=== PATIENT | female | born 1970 | race African-American/Black ===

== ENCOUNTER 2016-03-16 21:59 | Inpatient (IN) | payer OTHER, MEDICAID, MEDICARE ==
[~2016-03-16] VITALS: Ht 167.6 cm; Wt 110.0 kg
[2016-03-16 22:07] VITALS: BP 129/71; PULSE 81; RESP 18; TEMP 98.8; O2SAT 99
[2016-03-16] MEDS ORDERED: SODIUM CHLOR 0.9% 1000 ML INJ 1,000 ML IV SCH (22:22)
[2016-03-16 22:23] VITALS: BP 129/63; PULSE 81; RESP 18; O2SAT 97
[2016-03-16] MEDS ORDERED: SODIUM CHLORIDE 0.9% FLUSH 5 ML FLUSH IVF PRN (22:30)
--- NOTE | 2016-03-16 22:48 | PD ---
HPI Chief Complaint: Numbness/Tingling Time Seen by Provider: 22:09 Travel History International Travel<30 days: No Contact w/Intl Traveler<30days: No Traveled to known affect area: No History of Present Illness HPI Patient is a 45 year old female with hx of sarcoid, DM and "numbness" presents to ER with c/o of abdominal numbness and pain. Patient reports that for the past week and half, she has had increased numbness from the bottom of her abdomen to under her breast. Reports overall decreased oral intake with increased lower abdominal pain. Patient reports that although she feels numb to her lower abdomen, she has had increased pain to her lower abdomen. Pt reports dysuria with urinary urgency/freq. No fever/chills. Patient reports that she has also been having chest pain. Patient reports sharp stabbing pain across her whole chest which radiates down both her arms which has been ongoing for the past week and a half. Patient denies any history of coronary artery disease or any history of cardiac stents in the past. Patient does admit to having history of numbness to her lower extremities for the past 5 years. Patient reports that she has had extensive workup at another hospital, reports that "no one can tell me why I felt numb to my lower extremities." PFSH Past Medical History Cardiovascular Problems: Yes (htn ) Diabetes: Yes Patient Takes Glucophage: No Hypertension: Yes Medical other: Yes (carpal tunnel, scardidosis ) Tetanus Vaccination: Unknown Influenza Vaccination: Yes ?: Not LMP: 03/10/2015 : 3 Para: 3 Past Surgical History Section: Yes Cholecystectomy: Yes Other Surgery: Yes (lumbar fusion) Social History Alcohol Use: No Tobacco Use: No Substance Use: No Allergies-Medications (Allergen,Severity, Reaction): Coded Allergies: No Known Allergies (Unverified , 03/16/16) Reported Meds & Prescriptions Reported Meds & Active Scripts Active Reported Atorvastatin (Atorvastatin Calcium) 20 Mg Tab 20 Mg PO HS Tizanidine (Tizanidine HCl) 4 Mg Cap 4 Mg PO TID Lantus Inj (Insulin Glargine) 1,000 Unit/10 Ml Vial 55 Units SQ BID Oxycodone (Oxycodone HCl) 5 Mg Cap 5 Mg PO Q4H PRN Linzess (Linaclotide) 145 Mcg Cap 145 Mcg PO DAILY Lamivudine 150 Mg Tab 150 Mg PO BID Ferrous Sulfate 325 Mg Tab 325 Mg PO DAILY Ketoconazole Topical 2% Cream 1 Applic TOPICAL DAILY Baclofen 10 Mg Tab 10 Mg PO TID Humalog Inj (Insulin Human Lispro) 1,000 Unit/10 Ml Vial 33 Units SQ DAILY Citroma Liq (Magnesium Citrate) 300 Ml Liq 300 Ml PO DIRECTED Dulcolax Supp (Bisacodyl) 10 Mg Supp 10 Mg RECTAL DAILY PRN Milk of Magnesia Liq (Magnesium Hydroxide) 400 Mg/5 Ml Susp 30 Ml PO Q6H PRN Gabapentin 300 Mg Cap 300 Mg PO DAILY Lyrica (Pregabalin) 200 Mg Cap 200 Mg PO TID Polyethylene Glycol 3350 Powder (Polyethylene Glycol) 17 Gm Pow 17 Gm PO DAILY Review of Systems General / Constitutional: No: Fever Eyes: No: Visual changes HENT: No: Headaches Cardiovascular: Positive: Chest Pain or Discomfort, No: Palpitations, Irregular Rhythm Respiratory: No: Shortness of Breath Gastrointestinal: Positive: Nausea, Vomiting, Abdominal Pain Genitourinary: Positive: Urgency, Frequency, Dysuria Musculoskeletal: No: Pain Skin: No Rash Neurologic: No: Weakness Psychiatric: No: Depression Endocrine: No: Polydipsia Hematologic/Lymphatic: No: Easy Bruising Physical Exam Narrative GENERAL: nad, nontoxic SKIN: Warm and dry. HEAD: Atraumatic. Normocephalic. EYES: Pupils equal and round. No scleral icterus. No injection or drainage. ENT: No nasal bleeding or discharge. Mucous membranes pink and moist. NECK: Trachea midline. No JVD. CARDIOVASCULAR: Regular rate and rhythm. No murmur appreciated. RESPIRATORY: No accessory muscle use. Clear to auscultation. Breath sounds equal bilaterally. GASTROINTESTINAL: Abdomen soft,lower abdominal tenderness, nondistended. Hepatic and splenic margins not palpable. MUSCULOSKELETAL: No obvious deformities. No clubbing. No cyanosis. +3 edema. NEUROLOGICAL: Awake and alert. No obvious cranial nerve deficits. Motor grossly within normal limits. Normal speech. PSYCHIATRIC: Appropriate mood and affect; insight and judgment normal. Data Data Last Documented VS Vital Signs Date Time Temp Pulse Resp B/P Pulse Ox O2 Delivery O2 Flow Rate FiO2 03/16/16 23:11 98 Room Air 03/16/16 22:23 81 18 129/63 03/16/16 22:07 98.8 Orders Complete Blood Count With Diff (03/16/16 22:22) Comprehensive Metabolic Panel (03/16/16 22:22) Lipase (03/16/16 22:22) Prothrombin Time / Inr (Pt) (03/16/16 22:22) Act Partial Throm Time (Ptt) (03/16/16 22:22) Urinalysis - C+S If Indicated (03/16/16 22:22) Iv Access Insert/Monitor (03/16/16 22:22) Ecg Monitoring (03/16/16 22:22) Oximetry (03/16/16 22:22) NPO (03/16/16 22:22) Sodium Chlor 0.9% 1000 Ml Inj (Ns 1000 M (03/16/16 22:22) Sodium Chloride 0.9% Flush (Ns Flush) (03/16/16 22:30) Electrocardiogram (03/16/16 22:22) Chest, Single Ap (03/16/16 22:22) Ed Urine Pregnancytest Poc (03/16/16 22:22) Ckmb (Isoenzyme) Profile (03/16/16 22:22) Troponin I (03/16/16 22:22) Cath For Specimen (03/16/16 22:22) Ct Abd/Pel W Iv Contrast(Rout) (03/16/16 22:22) Place In Observation (03/16/16 ) Vital Signs (Adult) Q4H (03/16/16 22:51) Activity Bed Rest (03/16/16 22:51) ^ Instrument Panel Assembler / Telemetry .CONTINUOUS (03/16/16 22:51) Diet 1800 Ada Cons Carb (03/17/16 Breakfast) Sodium Chloride 0.9% Flush (Ns Flush) (03/16/16 23:00) Sodium Chloride 0.9% Flush (Ns Flush) (03/17/16 09:00) Acetaminophen (Tylenol) (03/16/16 23:00) Ondansetron Inj (Zofran Inj) (03/16/16 23:00) Bisacodyl Supp (Dulcolax Supp) (03/16/16 23:00) Sennosides (Senokot) (03/16/16 23:00) Troponin I (03/16/16 22:51) Troponin I (03/17/16 04:51) Electrocardiogram (03/16/16 23:00) Electrocardiogram (03/17/16 05:00) Resp Oxygen Junior C Titrat 1-4 L (03/16/16 ) Heparin Inj (Heparin Inj) (03/16/16 23:00) Naloxone Inj (Narcan Inj) (03/16/16 23:00) Bedside Glucose JERROD.AC&HS (03/16/16 22:51) ^ Blood Glucose Goal (Criteria (03/16/16 22:51) ^ Hypoglycemia 51 - 69 Mg/Dl (03/16/16 22:51) ^ Hypoglycemia 50 Mg/Dl Or < (03/16/16 22:51) ^ Notify Dr: Other (03/16/16 22:51) Dextrose 50% In Jordyn (Vial) Inj (D50w (Vi (03/16/16 23:00) Glucagon Inj (Glucagon Inj) (03/16/16 23:00) Insulin Aspart Supplemtl Scale (Novolog (03/17/16 07:00) Insulin Detemir Inj (Levemir Inj) (03/17/16 09:00) Aspirin (Aspirin) (03/18/16 09:00) Nitroglycerin 2% Oint (Nitroglycerin 2% (03/16/16 23:00) Nitroglycerin Sl (Nitrostat Sl) (03/16/16 23:00) Urine Culture (03/16/16 22:40) Admit Order (Ed Use Only) (03/16/16 23:20) CKMB (03/16/16 22:40) CKMB% (03/16/16 22:40) Labs Laboratory Tests Test 03/16/16 22:40 Prothrombin Time 10.7 SEC Prothromb Time International 1.0 RATIO Ratio Activated Partial 21.0 SEC Thromboplast Time Sodium Level 137 MEQ/L Potassium Level 4.4 MEQ/L Chloride Level 102 MEQ/L Carbon Dioxide Level 27.2 MEQ/L Anion Gap 8 MEQ/L Blood Urea Nitrogen 12 MG/DL Creatinine 0.61 MG/DL Estimat Glomerular Filtration 128 ML/MIN Rate Random Glucose 132 MG/DL Calcium Level 9.1 MG/DL Total Bilirubin 0.3 MG/DL Aspartate Amino Transf 68 U/L (AST/SGOT) Alanine Aminotransferase 43 U/L (ALT/SGPT) Alkaline Phosphatase 71 U/L Total Creatine Kinase 128 U/L Creatine Kinase MB 0.7 NG/ML Troponin I LESS THAN 0.02 NG/ML Total Protein 8.5 GM/DL Albumin 3.4 GM/DL Lipase 161 U/L White Blood Count 17.3 TH/MM3 Red Blood Count 3.93 MIL/MM3 Hemoglobin 12.2 GM/DL Hematocrit 36.2 % Mean Corpuscular Volume 92.0 FL Mean Corpuscular Hemoglobin 31.1 PG Mean Corpuscular Hemoglobin 33.8 % Concent Red Cell Distribution Width 18.8 % Platelet Count 364 TH/MM3 Mean Platelet Volume 9.3 FL Neutrophils (%) (Auto) 71.5 % Lymphocytes (%) (Auto) 21.0 % Monocytes (%) (Auto) 5.7 % Eosinophils (%) (Auto) 1.1 % Basophils (%) (Auto) 0.7 % Neutrophils # (Auto) 12.4 TH/MM3 Lymphocytes # (Auto) 3.6 TH/MM3 Monocytes # (Auto) 1.0 TH/MM3 Eosinophils # (Auto) 0.2 TH/MM3 Basophils # (Auto) 0.1 TH/MM3 CBC Comment AUTO DIFF Differential Comment AUTO DIFF CONFIRMED Platelet Estimate NORMAL Platelet Morphology Comment ENLARGED Stomatocytes 1+ Keratocytes OCC Urine Color YELLOW Urine Turbidity HAZY Urine pH 5.5 Urine Specific [place] 1.016 Urine Protein NEG mg/dL Urine Glucose (UA) NEG mg/dL Urine Ketones NEG mg/dL Urine Occult Blood NEG Urine Nitrite POS Urine Bilirubin NEG Urine Urobilinogen LESS THAN 2.0 MG/DL Urine Leukocyte Esterase MOD Urine RBC 1 /hpf Urine WBC 16 /hpf Urine Squamous Epithelial <1 /hpf Cells Urine Bacteria MOD /hpf Urine Hyaline Casts 1 /lpf Urine Mucus FEW /lpf Microscopic Urinalysis Comment CATH-CULTURE IND MDM Medical Decision Making Medical Screen Exam Complete: Yes Emergency Medical Condition: Yes Interpretation(s) EKG at 2225: NSR at 76bpm, qt/qtc: 395/425, no acute st or t wave changes Laboratory Tests Test 03/16/16 22:40 Urine Color YELLOW (YELLW/STRAW) Urine Turbidity HAZY (CLEAR) Urine pH 5.5 (5.0-8.5) Urine Specific [place] 1.016 (1.002-1.035) Urine Protein NEG mg/dL (NEG-TRACE) Urine Glucose (UA) NEG mg/dL (NEG) Urine Ketones NEG mg/dL (NEG) Urine Occult Blood NEG (NEG) Urine Nitrite POS (NEG) Urine Bilirubin NEG (NEG) Urine Urobilinogen LESS THAN 2.0 MG/DL (LESS THAN 2.0) Urine Leukocyte Esterase MOD (NEG) Urine RBC 1 /hpf (0-3) Urine WBC 16 /hpf (0-5) Urine Squamous Epithelial <1 /hpf (0-5) Cells Urine Bacteria MOD /hpf (NONE) Urine Hyaline Casts 1 /lpf (RARE) Urine Mucus FEW /lpf (OCC) Microscopic Urinalysis Comment CATH-CULTURE IND Sodium Level 137 MEQ/L (136-145) Potassium Level 4.4 MEQ/L (3.5-5.1) Chloride Level 102 MEQ/L (98-107) Carbon Dioxide Level 27.2 MEQ/L (21.0-32.0) Anion Gap 8 MEQ/L (5-15) Blood Urea Nitrogen 12 MG/DL (7-18) Creatinine 0.61 MG/DL (0.50-1.00) Estimat Glomerular Filtration 128 ML/MIN Rate (>89) Random Glucose 132 MG/DL (74-106) Calcium Level 9.1 MG/DL (8.5-10.1) Aspartate Amino Transf 68 U/L (15-37) (AST/SGOT) Albumin 3.4 GM/DL (3.4-5.0) Lipase 161 U/L (73-393) Vital Signs Date Time Temp Pulse Resp B/P Pulse Ox O2 Delivery O2 Flow Rate FiO2 03/16/16 23:11 98 Room Air 03/16/16 23:00 97 03/16/16 22:23 81 18 129/63 97 Room Air 03/16/16 22:07 98.8 81 18 129/71 99 Differential Diagnosis ACS, arrhythmia, electrolyte abnormality, UTI, gastritis, gastroenteritis, colitis Narrative Course 45-year-old female who presents to emergency room with multiple complaints. 1: Chest pain: Patient has been having chest pain for the past week and a half. Patient reports that chest pain is located to her upper chest wall and radiates down her arms bilaterally. EKG normal sinus rhythm at 76 beats per minutes, no ST-T wave changes. Cardiac enzymes ordered for further evaluation symptoms as well as x-ray chest. 1: Abdominal pain: Patient with lower abdominal pain for the past week and half. Patient also with dysuria, urgency or frequency. CBC, BMP, UA ordered for further evaluation symptoms. CT of her lower abdomen also ordered for further evaluation symptoms. Plan to observation to medicine service for her chest pain. Reviewed case with Nayan Walker who accepts pt to service on behalf of Dr. Rodriguez; Diagnosis Primary Impression: Chest pain Qualified Code: R07.9 - Chest pain, unspecified type Additional Impressions: Abdominal pain Qualified Code: R10.30 - Lower abdominal pain UTI (urinary tract infection) Qualified Code: N30.00 - Acute cystitis without hematuria Admitting Information Admitting Physician Requests: Observation Brenda Marino DO Mar 16, 2016 22:48
--- NOTE | 2016-03-16 22:50 | RADRPT ---
EXAM DATE/TIME: 03/16/2016 22:43 [facility] COMPARISON: No previous studies available for comparison. INDICATIONS : Patient complains of chest and upper abdominal pain. MEDICAL HISTORY : None. SURGICAL HISTORY : None. ENCOUNTER: Initial ACUITY: 2 weeks PAIN SCORE: 10/10 LOCATION: chest FINDINGS: A single view of the chest demonstrates the lungs to be symmetrically aerated without evidence of mas s, infiltrate or effusion. The cardiomediastinal contours are unremarkable. Osseous structures are intact. CONCLUSION: No acute disease. Héctor Mari MD on March 16, 2016 at 22:48 Board Certified Radiologist. This report was verified electronically.
[2016-03-16 23:00] VITALS: O2SAT 97
[2016-03-16] MEDS ORDERED: NITROGLYCERIN 2% OINT 1 GM PACKET TOP SCH (23:00)
[2016-03-16] MEDS ORDERED: ONDANSETRON HCL 4 MG/2 ML VIAL IVP PRN (23:00)
[2016-03-16] MEDS ORDERED: NALOXONE HCL 0.4 MG/ML AMP IV PRN (23:00)
[2016-03-16] MEDS ORDERED: SODIUM CHLORIDE 0.9% FLUSH 5 ML FLUSH FLUSH PRN (23:00)
[2016-03-16] MEDS ORDERED: DEXTROSE 50% IN WATER 50 ML VIAL(D50) IV PUSH PRN (23:00)
[2016-03-16] MEDS ORDERED: NITROGLYCERIN 0.4 MG SL 25 TABS/BTL SL PRN (23:00)
[2016-03-16] MEDS ORDERED: GLUCAGON 1 MG/ML VIAL OTHER PRN (23:00)
[2016-03-16] MEDS ORDERED: ACETAMINOPHEN 325 MG TAB PO PRN (23:00)
[2016-03-16] MEDS ORDERED: SENNOSIDES 8.6 MG TAB PO PRN (23:00)
[2016-03-16 23:11] VITALS: O2SAT 98
[2016-03-16 23:17] LABS: BACTERIA, URINE MOD /hpf; BLOOD, URINE NEG (NEG); GLUCOSE,URINE NEG (NEG); HYALINE CAST, URINE 1 /lpf (RARE); KETONE, URINE NEG (NEG); MUCUS URINE FEW /lpf (OCC); PH, URINE 5.5 (5.0-8.5); SQUAMOUS EPITHELIAL CELL URINE <1 /hpf (0-5); URINE COLOR YELLOW (YELLW/STRAW)
[2016-03-16 23:19] LABS: AUTOMATED NEUTROPHIL # 12.4 TH/MM3 (1.8-7.7); BASOPHIL # 0.1 TH/MM3 (0-0.2); BASOPHIL % 0.7 % (0.0-2.0); COMMENT (UR) CATH-CULTURE IND; CULTURE IF INDICATED CATH CULTURE IND; EOSINOPHIL # 0.2 TH/MM3 (0-0.4); EOSINOPHIL % 1.1 % (0.0-4.0); HEMATOCRIT 36.2 % (35.0-46.0); LYMPHOCYTE # 3.6 TH/MM3 (1.0-4.8); MEAN CORPUSCULAR HEMOGLOBIN 31.1 PG (27.0-34.0); MEAN CORPUSCULAR HGB CONC 33.8 % (32.0-36.0); MONO % 5.7 % (0.0-8.0); NEUT % 71.5 % (16.0-70.0); NITRITE,URINE POS (NEG); PLATELET COUNT 364 TH/MM3 (150-450); RED BLOOD COUNT 3.93 MIL/MM3 (4.00-5.30); RED CELL DISTRIBUTION WIDTH 18.8 % (11.6-17.2); WHITE BLOOD COUNT 17.3 TH/MM3 (4.0-11.0)
[2016-03-16 23:25] LABS: ANION GAP 8 MEQ/L (5-15); AST (GOT) 68 U/L (15-37); BICARBONATE 27.2 MEQ/L (21.0-32.0); BLOOD UREA NITROGEN 12 MG/DL (7-18); CHLORIDE 102 MEQ/L (98-107); GLOMERULAR FILTRATION RATE 128 ML/MIN (>89); SODIUM (NA) 137 MEQ/L (136-145)
[2016-03-16 23:26] LABS: POTASSIUM 4.4 MEQ/L (3.5-5.1)
[2016-03-16 23:30] LABS: ALKALINE PHOSPHATASE 71 U/L (45-117); ALT (GPT) 43 U/L (10-53); CREATINE KINASE 128 U/L (26-192); TOTAL BILIRUBIN ADULT 0.3 MG/DL (0.2-1.0)
[2016-03-16] MEDS ORDERED: MORPHINE SULFATE 4 MG/ML INJ IV PRN (23:30)
[2016-03-16 23:31] LABS: PROTHROMBIN TIME - PATIENT 10.7 SEC (9.8-11.6)
[2016-03-16] MEDS: HEPARIN SODIUM - SQ 10,000 UNITS/ML VIAL SQ SCH (23:39)
[2016-03-16] MEDS: cefTRIAXone INJ 1,000 MG in SODIUM CHLORIDE 0.9% INJ 100 ML IV SCH (23:39)
[2016-03-16 23:42] LABS: CKMB 0.7 NG/ML (0.5-3.6)
[2016-03-16] MEDS ORDERED: ASPIRIN EC 81 MG TABEC PO ONE (23:45)
[2016-03-16] MEDS ORDERED: POLY17S PO (23:51)
[2016-03-16] MEDS ORDERED: GABA300C5 PO (23:52)
[2016-03-16] MEDS ORDERED: LYRI200C PO (23:52)
[2016-03-16] MEDS ORDERED: DULC10SU3 RECTAL (23:53)
[2016-03-16] MEDS ORDERED: MILKSUS PO (23:53)
[2016-03-16] MEDS ORDERED: CITRSOL4 PO (23:54)
[2016-03-16] MEDS ORDERED: BACL10TA PO (23:55)
[2016-03-16] MEDS ORDERED: HUMALOG SQ (23:55)
[2016-03-16] MEDS ORDERED: KETO2CRE TOPICAL (23:56)
[2016-03-16] MEDS ORDERED: FERR325T PO (23:56)
[2016-03-16] MEDS ORDERED: LINA145C PO (23:57)
[2016-03-16] MEDS ORDERED: LAMI1TAB7 PO (23:57)
[2016-03-16] MEDS ORDERED: OXYC1CAP PO (23:58)
[2016-03-16] MEDS ORDERED: LANTUS2P SQ (23:58)
[2016-03-16] MEDS ORDERED: IOHEXOL 350 MG/ML 10 ML VIAL (for RAD DIAG) IV ONE (23:58)
[2016-03-16] MEDS ORDERED: TIZA4CAP3 PO (23:59)
[2016-03-16] MEDS ORDERED: ATOR20TA15 PO (23:59)
[2016-03-17] VITALS (10 sets, daily range): BP systolic 113–141; BP diastolic 54–75; PULSE 67–86; RESP 18–22; TEMP 97.5–98.2; O2SAT 95–98
[2016-03-17] MEDS ORDERED: DIPH1TAB36
[2016-03-17] MEDS ORDERED: ESOM1CAP16 PO
[2016-03-17] MEDS ORDERED: ATEN50TA PO (00:01)
[2016-03-17] MEDS ORDERED: LISI40TA PO (00:01)
[2016-03-17] MEDS ORDERED: CHOL100028 PO (00:02)
[2016-03-17 00:04] LABS: HEMO FLAGS AUTO DIFF
[2016-03-17 00:06] LABS: KERATOCYTES OCC (NORMAL); PLATELET ESTIMATE SMEAR NORMAL (NORMAL); PLATELET MORPHOLOGY ENLARGED (NORMAL); SCAN/DIFF AUTO DIFF CONFIRMED; STOMATOCYTES 1+ (NORMAL)
--- NOTE | 2016-03-17 00:27 | RADRPT ---
EXAM DATE/TIME: 03/16/2016 23:54 [facility] COMPARISON: No previous studies available for comparison. INDICATIONS : Lower quadrant pain with numbness down into legs. Difficulty urinating. IV CONTRAST: 94 cc Omnipaque 350 (iohexol) IV ORAL CONTRAST: No oral contrast ingested. RADIATION DOSE: 30.90 CTDIvol (mGy) MEDICAL HISTORY : Diabetes mellitus type 2. Hypertension. SURGICAL HISTORY : Cholecystectomy. section.Lumbar fusion. ENCOUNTER: Initial ACUITY: 2 days PAIN SCALE: 5/10 LOCATION: Bilateral lower quadrant abdomen TECHNIQUE: Volumetric scanning of the abdomen and pelvis was performed. Using automated exposure control and ad justment of the mA and/or kV according to patient size, radiation dose was kept as low as reasonably achievable to obtain optimal diagnostic quality images. FINDINGS: There is some out of field artifact due to patient's body habitus. LOWER LUNGS: The visualized lower lungs are clear. There is mild thickening of the pleura in the lower left chest without evidence of pleural effusion. LIVER: Homogeneous density without lesion. There is no dilation of the biliary tree. Hemoclips in the port a from prior cholecystectomy. SPLEEN: Normal size without lesion. PANCREAS: Within normal limits. KIDNEYS: Normal in size and shape. There is no mass, stone or hydronephrosis. ADRENAL GLANDS: Within normal limits. VASCULAR: There is no aortic aneurysm. BOWEL/MESENTERY: The stomach, small bowel, and colon demonstrate no acute abnormality. There is no free intraperitone al air or fluid. ABDOMINAL WALL: Within normal limits. RETROPERITONEUM: There is no lymphadenopathy. BLADDER: No wall thickening or mass. REPRODUCTIVE: Anteverted uterus. Bilateral fallopian clips. 3.1 cm round hypodense structure in the superior adne xa probably representing cyst. No evidence of free fluid or INGUINAL: There is no lymphadenopathy or hernia. MUSCULOSKELETAL: Transpedicular screws at 3 levels lower lumbar. CONCLUSION: Probable right ovarian cyst. Mild pleural thickening lower left chest. Otherwise negative exam. Fam Alvarado MD on March 17, 2016 at 0:20 Board Certified Radiologist. This report was verified electronically.
[2016-03-17] MEDS: MORPHINE SULFATE 4 MG/ML INJ IV PRN ×2 (00:54→05:07)
[2016-03-17] MEDS: PREGABALIN 100 MG CAP PO SCH ×3 (05:06→22:05)
[2016-03-17] MEDS: BACLOFEN 20 MG TAB PO SCH ×3 (05:06→22:05)
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
[2016-03-17] MEDS: INSULIN ASPART SUPPLEMENTAL SCALE SQ SCH ×4 (05:57→22:05)
--- NOTE | 2016-03-17 09:12 | HHI.PR ---
Subjective Remarks Patient seen with a female RN Sherine at bedside Complaining of right shoulder pain Still some discomfort in the abdomen mostly lower abdomen still feeling numbness below diaphragm Sometimes she feels that she has to be sometimes she has no idea whether she is being or not. She has no bowel movement from past few days as per patient. Review of system for 12 point system otherwise unremarkable Objective Objective Results - Vital Signs Date Time Temp Pulse Resp B/P Pulse Ox O2 Delivery O2 Flow Rate FiO2 03/17/16 08:36 96 21 03/17/16 07:25 98.0 70 18 120/63 96 03/17/16 05:20 14 03/17/16 04:46 98.2 78 21 131/74 98 03/17/16 01:00 76 03/16/16 23:11 98 Room Air 03/16/16 23:00 97 03/16/16 22:23 81 18 129/63 97 Room Air 03/16/16 22:07 98.8 81 18 129/71 99 I/O 03/16/16 03/16/16 03/16/16 03/17/16 03/17/16 03/17/16 07:00 15:00 23:00 07:00 15:00 23:00 Output Total 800 ml Balance -800 ml Output Urine Total 800 ml # Voids 1 Result Diagram: 03/16/16223903/16/162239 Other Results Laboratory Tests Test 03/16/16 03/17/16 22:40 05:39 Prothrombin Time 10.7 Prothromb Time International 1.0 Ratio Activated Partial 21.0 Thromboplast Time Sodium Level 137 Potassium Level 4.4 Chloride Level 102 Carbon Dioxide Level 27.2 Anion Gap 8 Blood Urea Nitrogen 12 Creatinine 0.61 Estimat Glomerular Filtration 128 Rate Random Glucose 132 Calcium Level 9.1 Total Bilirubin 0.3 Aspartate Amino Transf 68 (AST/SGOT) Alanine Aminotransferase 43 (ALT/SGPT) Alkaline Phosphatase 71 Total Creatine Kinase 128 Creatine Kinase MB 0.7 Troponin I LESS THAN 0.02 LESS THAN 0.02 Total Protein 8.5 Albumin 3.4 Lipase 161 White Blood Count 17.3 Red Blood Count 3.93 Hemoglobin 12.2 Hematocrit 36.2 Mean Corpuscular Volume 92.0 Mean Corpuscular Hemoglobin 31.1 Mean Corpuscular Hemoglobin 33.8 Concent Red Cell Distribution Width 18.8 Platelet Count 364 Mean Platelet Volume 9.3 Neutrophils (%) (Auto) 71.5 Lymphocytes (%) (Auto) 21.0 Monocytes (%) (Auto) 5.7 Eosinophils (%) (Auto) 1.1 Basophils (%) (Auto) 0.7 Neutrophils # (Auto) 12.4 Lymphocytes # (Auto) 3.6 Monocytes # (Auto) 1.0 Eosinophils # (Auto) 0.2 Basophils # (Auto) 0.1 CBC Comment AUTO DIFF Differential Comment AUTO DIFF CONFIRMED Platelet Estimate NORMAL Platelet Morphology Comment ENLARGED Stomatocytes 1+ Keratocytes OCC Urine Color YELLOW Urine Turbidity HAZY Urine pH 5.5 Urine Specific [place] 1.016 Urine Protein NEG Urine Glucose (UA) NEG Urine Ketones NEG Urine Occult Blood NEG Urine Nitrite POS Urine Bilirubin NEG Urine Urobilinogen LESS THAN 2.0 Urine Leukocyte Esterase MOD Urine RBC 1 Urine WBC 16 Urine Squamous Epithelial <1 Cells Urine Bacteria MOD Urine Hyaline Casts 1 Urine Mucus FEW Microscopic Urinalysis Comment CATH-CULTURE IND Date/Time Procedure Status Source Growth 03/16/16 22:40 Urine Culture Worksheet Urine Catheterized Urine Pending Physical Exam Physical Exam PHYSICAL EXAMINATION GENERAL: This is a well-developed, well-nourished female who appears to be in no acute distress. She is alert and awake, []. VITAL SIGNS: Reviewed GENERAL: This is a 45 year-old female, attended to by her two children. The patient is sitting up in bed. She is conversing pleasantly and in no acute distress at this time. HEENT: Mucous membranes are moist. There is no jaundice. NECK: Supple. CARDIOVASCULAR: Regular rate and rhythm. RESPIRATORY: Lungs are clear to auscultation bilaterally. GASTROINTESTINAL: Bowel sounds are present. She is overweight. There is tenderness over the suprapubic area, otherwise no guarding or rebound. GENITOURINARY: No CVA tenderness. MUSCULOSKELETAL: No pitting edema. Homans' sign is negative. Distal pulses are palpable. NEUROLOGIC: The patient is awake, alert, oriented x4. She is clear and fluent. She is moving upper extremities freely. Lower extremities: Minimal strength. She can plantar flex about 3/5, dorsiflex is minimal. She cannot straight leg raise. She has minimal movement in either of her legs actively. Sensation is grossly intact to light touch, although per patient it is diminished. She is not completely numb anywhere on her lower extremities or abdomen with light touching. Subjectively diminished sensation. Gait and station is not tested. Positive DTR at knee joint. She cannot raise her hand above shoulder level. As per patient she did not walk from last 3 years A/P Assessment and Plan 1. Atypical chest pain. 2. Diabetes mellitus type 2. 3. 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 4. Chronic bilateral lower extremity weakness. 5. Urinary retention (straight cath removed 450 cc in the emergency room). 6. History of lumbar spinal fusion, status post recent fall. 7. Urinary tract infection. 8. Hypertension. 9. Hyperlipidemia. PLAN: 1. Rule out acute cardiac event as she is at least moderate risk for developing cardiovascular disease with her hypertension, hyperlipidemia, diabetes, being sedentary, etc. She will be placed in DVT prophylaxis. Aspirin will be ordered. Repeat EKGs will be ordered. Serial troponins will be ordered. Troponin [address] of the abdomen and pelvis report reviewed 3. Her urinary tract infection will be treated with Rocephin while we await culture and sensitivity. 4. resumed her home medications. Appropriate and is indicated 5. Continue monitor her blood sugar, cover with insulin. 6. Plan for x-ray shoulder right which is hurting her. 7. We may be able to request records from the previous hospital where she was to get a better understanding of all the tests that were run and the diagnoses that were made. 8. Neurology consult Discussed with patient in detail Discussed with Gilberto Moser MD Mar 17, 2016 09:12
[2016-03-17] MEDS ORDERED: BISACODYL 10 MG SUPP RECTAL ONE (10:00)
[2016-03-17] MEDS ORDERED: MAGNESIUM HYDROXIDE SUSP 30 ML CUP PO PRN (10:00)
--- NOTE | 2016-03-17 10:57 | RADRPT ---
EXAM DATE/TIME: 03/17/2016 10:35 [facility] COMPARISON: No previous studies available for comparison. INDICATIONS : Right shoulder pain, injured using walker MEDICAL HISTORY : None. SURGICAL HISTORY : None. ENCOUNTER: Initial ACUITY: 3 months PAIN SCORE: 8/10 LOCATION: Right shoulder FINDINGS: There are degenerative changes at the acromioclavicular joint. Mild soft-tissue swelling is evident. Minimal subacromial spurring is noted. Alignment is anatomic. A fracture is not appreciated. CONCLUSION: Degenerative changes, negative for fracture. Vu Jones MD FACR on March 17, 2016 at 10:55 Board Certified Radiologist. This report was verified electronically.
--- NOTE | 2016-03-17 11:31 | RADRPT ---
EXAM DATE/TIME: 03/17/2016 11:14 [facility] COMPARISON: No previous studies available for comparison. INDICATIONS : Left shoulder pain, injured using walker MEDICAL HISTORY : None. SURGICAL HISTORY : None. ENCOUNTER: Initial ACUITY: 3 months PAIN SCORE: 10/10 LOCATION: Left shoulder FINDINGS: Degenerative changes are present about the left shoulder. Subacromial spurring is present. Alignmen t is anatomic. CONCLUSION: Degenerative changes as described above. Vu Jones MD FACR on March 17, 2016 at 11:26 Board Certified Radiologist. This report was verified electronically.
[2016-03-17] MEDS: SODIUM CHLORIDE 0.9% FLUSH 5 ML FLUSH FLUSH SCH ×2 (11:49→22:03)
[2016-03-17] MEDS: GABAPENTIN 300 MG CAP PO SCH ×2 (11:49→21:00)
[2016-03-17] MEDS: ATORVASTATIN 20 MG TAB PO SCH (11:49)
[2016-03-17 11:50] LABS: BHCG SCREEN QUALITATIVE LESS THAN 1 MIU/ML (0-5)
[2016-03-17] MEDS: LISINOPRIL 20 MG TAB PO SCH (11:53)
[2016-03-17] MEDS: PANTOPRAZOLE SOD 40 MG DELAYED RELEASE TAB PO SCH (11:55)
[2016-03-17] MEDS: HEPARIN SODIUM - SQ 10,000 UNITS/ML VIAL SQ SCH ×2 (11:55→23:25)
[2016-03-17] MEDS: ZIDOVUDINE 100 MG CAP PO SCH ×2 (12:22→22:04)
[2016-03-17] MEDS: ATENOLOL 50 MG TAB PO SCH ×2 (12:22→22:04)
[2016-03-17] MEDS: INSULIN DETEMIR 100 UNITS/ML VIAL SQ SCH ×2 (12:23→21:00)
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
--- NOTE | 2016-03-17 14:46 | EKG ---
Date Performed: 03/17/2016 Time Performed: 05:18:26 PTAGE: 45 years EKG: Sinus rhythm Nonspecific ST and T wave abnormalities PREVIOUS TRACING : 03/16/2016 22.25 Since previous tracing, no significant change noted DOCTOR: Jay Bunch Interpretating Date/Time 03/17/2016 14:45:56
--- NOTE | 2016-03-17 15:35 | EKG ---
Date Performed: 03/16/2016 Time Performed: 22:25:38 PTAGE: 45 years EKG: Sinus rhythm Nonspecific ST and T wave abnormalities NO PREVIOUS TRACING DOCTOR: Jay Bunch Interpretating Date/Time 03/17/2016 15:35:18
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
[2016-03-17] MEDS ORDERED: IOHEXOL 350 MG/ML 10 ML VIAL (for RAD DIAG) IV ONE (17:56)
--- NOTE | 2016-03-17 18:00 | RADRPT ---
EXAM DATE/TIME: 03/17/2016 16:20 [facility] COMPARISON: No previous studies available for comparison. INDICATIONS : Upper back pain. RADIATION DOSE: 35.68 CTDIvol (mGy) MEDICAL HISTORY : Cardiovascular disease. Hypertension. Diabetes mellitus type 2. SURGICAL HISTORY : None. ENCOUNTER: Initial ACUITY: 1 day PAIN SCALE: 5/10 LOCATION: Upper back TECHNIQUE: Volumetric scanning of the thoracic spine was performed. Multiplanar reconstructions in the sagittal , coronal and oblique axial planes were performed. Using automated exposure control and adjustment o f the mA and/or kV according to patient size, radiation dose was kept as low as reasonably achievable to obtain optimal diagnostic quality images. FINDINGS: There is mild to moderate spinal stenosis at T5-T6 predominantly related to midline posterior osteoph ytic spurring from the posterior elements at this level. No other significant spinal stenosis is not ed. Mild degenerative changes are noted throughout the thoracic spine. There is no acute fracture o r subluxation. CONCLUSION: 1. Mild to moderate spinal stenosis at T5-T6 predominantly related to midline posterior osteophytic spurring from the posterior elements at this level. 2. Degenerative changes throughout the thoracic spine. 3. No acute fracture or prevertebral soft-tissue swelling. Lazaro Vasquez MD on March 17, 2016 at 17:37 Board Certified Radiologist. This report was verified electronically.
--- NOTE | 2016-03-17 18:46 | RADRPT ---
EXAM DATE/TIME: 03/17/2016 16:20 [facility] COMPARISON: No previous studies available for comparison. INDICATIONS : Brain tumor; evaluate for metastatic disease. RADIATION DOSE: 35.68 CTDIvol (mGy) ; Combined studies - Thoracic Spine/Lumbar Spine MEDICAL HISTORY : Hypertension. Cardiovascular disease Diabetes mellitus type 2. SURGICAL HISTORY : None. ENCOUNTER: Initial ACUITY: 1 day PAIN SCALE: 5/10 LOCATION: Lower back TECHNIQUE: Volumetric scanning of the lumbar spine was performed. Multiplanar reconstructions in the sagittal, coronal and oblique axial planes were performed. Using automated exposure control and adjustment of the mA and/or kV according to patient size, radiation dose was kept as low as reasonably achievable t o obtain optimal diagnostic quality images. FINDINGS: The patient is status post lower lumbar spine fusion from L4 through S1. Implants are noted at L4-L5 and L5-S1 disc spaces. There is no acute fracture or spondylolisthesis. Evaluation of the soft tis sues of the spine is limited without contrast enhancement. There is mild to moderate circumferential spinal stenosis at L3-L4 secondary to diffuse disc bulge, facet joint hypertrophy and ligamentous la xity. Degenerative changes are noted throughout the lumbar spine and lower thoracic spine. CONCLUSION: 1. Mild to moderate spinal stenosis at L3-L4 secondary to a diffuse disc bulge, facet joint hypertro phy and ligamentous laxity. 2. Evaluation of the soft tissues of the spine is somewhat limited without contrast enhancement. 3. Degenerative changes throughout the lumbar spine and lower thoracic spine. Lazaro Vasquez MD on March 17, 2016 at 18:29 Board Certified Radiologist. This report was verified electronically.
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
[2016-03-17] MEDS: cefTRIAXone INJ 1,000 MG in SODIUM CHLORIDE 0.9% INJ 100 ML IV SCH (23:26)
[2016-03-18] VITALS (10 sets, daily range): BP systolic 110–168; BP diastolic 57–75; PULSE 70–87; RESP 16–20; TEMP 96.6–98.2; O2SAT 96–98
[2016-03-18] MEDS: GABAPENTIN 300 MG CAP PO SCH ×3 (02:34→21:52)
[2016-03-18 05:33] LABS: HEMATOCRIT 33.1 % (35.0-46.0); MEAN CELL VOLUME 92.5 FL (80.0-100.0); MEAN CORPUSCULAR HGB CONC 33.5 % (32.0-36.0); PLATELET COUNT 277 TH/MM3 (150-450); RED BLOOD COUNT 3.57 MIL/MM3 (4.00-5.30); RED CELL DISTRIBUTION WIDTH 19.4 % (11.6-17.2); REVIEW FLAG FINAL; WHITE BLOOD COUNT 10.5 TH/MM3 (4.0-11.0)
[2016-03-18 06:03] LABS: BICARBONATE 25.4 MEQ/L (21.0-32.0); POTASSIUM 3.7 MEQ/L (3.5-5.1)
[2016-03-18] MEDS: PREGABALIN 100 MG CAP PO SCH ×3 (06:16→21:53)
[2016-03-18] MEDS: INSULIN ASPART SUPPLEMENTAL SCALE SQ SCH ×4 (06:16→20:45)
[2016-03-18] MEDS: BACLOFEN 20 MG TAB PO SCH ×3 (06:16→21:53)
[2016-03-18] MEDS: ATENOLOL 50 MG TAB PO SCH ×2 (07:45→21:53)
[2016-03-18] MEDS: LISINOPRIL 20 MG TAB PO SCH (07:45)
[2016-03-18] MEDS: ASPIRIN 325 MG TAB PO SCH (07:45)
[2016-03-18] MEDS: PANTOPRAZOLE SOD 40 MG DELAYED RELEASE TAB PO SCH (07:46)
[2016-03-18] MEDS: ATORVASTATIN 20 MG TAB PO SCH (07:46)
[2016-03-18] MEDS: SODIUM CHLORIDE 0.9% FLUSH 5 ML FLUSH FLUSH SCH ×2 (07:46→21:52)
[2016-03-18] MEDS: BISACODYL 10 MG SUPP PR PRN (07:47)
[2016-03-18] MEDS: INSULIN DETEMIR 100 UNITS/ML VIAL SQ SCH ×2 (07:48→20:44)
--- NOTE | 2016-03-18 07:56 | HHI.PR ---
Subjective Remarks no chest pain constipation with abd. discomfort Appetite fair LLQ and RLQ pain anxious, mild no headache Objective Objective Results - Vital Signs Date Time Temp Pulse Resp B/P Pulse Ox O2 Delivery O2 Flow Rate FiO2 03/18/16 07:46 18 03/18/16 04:13 96.6 87 20 127/60 96 03/18/16 04:00 72 03/18/16 00:00 73 03/17/16 23:46 97.5 76 20 119/54 97 03/17/16 20:00 67 03/17/16 19:58 97 03/17/16 19:46 98.2 74 20 113/58 97 03/17/16 18:14 20 03/17/16 16:03 98.2 76 22 121/75 97 03/17/16 12:31 98.0 86 18 141/70 95 03/17/16 08:36 96 21 I/O 03/17/16 03/17/16 03/17/16 03/18/16 03/18/16 03/18/16 07:00 15:00 23:00 07:00 15:00 23:00 Output Total 800 ml Balance -800 ml Output Urine Total 800 ml # Voids 1 Result Diagram: 03/18/16 0510 03/18/16 0510 Physical Exam Physical Exam GENERAL: This is a well-developed, well-nourished female who appears to be in no acute distress. She is alert and awake,. VITAL SIGNS: Reviewed GENERAL: This is a 45 year-old female, No family at bedside The patient is lying on rt. side in bed. She is conversing appropriately. HEENT: Mucous membranes are moist. There is no jaundice. NECK: Supple. CARDIOVASCULAR: Regular rate and rhythm. RESPIRATORY: Lungs are clear to auscultation bilaterally. GASTROINTESTINAL: Bowel sounds are present. She is overweight. There is tenderness over the suprapubic area, otherwise no guarding or rebound. GENITOURINARY: No CVA tenderness. MUSCULOSKELETAL: No pitting edema. Distal pulses 1+/4+ bilaterally NEUROLOGIC: The patient is awake, alert, oriented x4. She is clear and fluent. She is moving upper extremities freely. Lower extremities: Minimal strength. She can plantar flex about 3/5, dorsiflex is minimal. She has minimal movement in either of her legs actively. Sensation is grossly intact to light touch, although per patient it is diminished. She is not completely numb anywhere on her lower extremities or abdomen with light touching. Subjectively diminished sensation. She cannot raise her rt. hand above shoulder level. As per patient she did not walk from last 3 years Objective Remarks 12 point review obtained /otherwise unremarkable A/P Assessment and Plan 1.Atypical chest pain, 2. Diabetes mellitus type 2.,uncontrolled mild 3. Neuropathy from the diaphragm distally 4. Chronic bilateral lower extremity weakness continues 5. Urinary retention with dysuria. 6. History of lumbar spinal fusion, status post recent fall/ weakness. 7. Urinary tract infection. 8. Hypertension. 9. Hyperlipidemia. 10. Anxiety PLAN: 1. acute cardiac event ruled out. DVT prophylaxis. Aspirin ordered. Repeat EKGs with acute chest pain. Serial troponins negative. 2. CT of the abdomen and pelvis negative except for rt. ovarian cyst. 3. urinary tract infection will be treated with Rocephin while we await culture and sensitivity. Prelim shows Gm negative micah. Now voiding small amounts with dysuria. Slow improvement. 4. resumed her home medications. 5. Continue monitor her blood sugar, cover with insulin., glucose 159 this am 6. x-ray shoulder right done with no fracture seen. Degenerative changes noted, 7. We may be able to request records from the previous hospital where she was to get a better understanding of all the tests that were run and the diagnoses that were made. Reviewed per neurology 8. Neurology consult. Cerival xrays show spondlosis with fractures, thorasic and lumbar areas show degenerative disease with changes in T5 and T6, and moderate spinal stenosis in L3/L4. No fractures seen. CT head negative. Appreciate expert opinion. R/O myelitis 9. Worried about bowel movements even though she had BM yesterday with suppository. Requested fleets enema today and recieved. Requests home meds be reviewed. States she takes Predisone, but not seen on list. Will follow up with Dr. Rodriguez for needs. Discussed with patient Discussed with RN D/W Dr. Rodriguez This pt. was seen by myself and Dr. Rodriguez. This note is written on his behalf Discharge Planning home with her children vs SNF Discussed With: Other (patient, Dr. Rodriguez) Serina Ascencio Mar 18, 2016 07:56
[2016-03-18] MEDS: ZIDOVUDINE 100 MG CAP PO SCH ×2 (10:56→21:53)
[2016-03-18] MEDS: HEPARIN SODIUM - SQ 10,000 UNITS/ML VIAL SQ SCH ×2 (10:57→23:24)
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
[2016-03-18 15:07] LABS: ANA SCREEN POS (NEG)
--- NOTE | 2016-03-18 16:39 | HHI.PR ---
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 start steroids. Diagnosis/Plan: Subjective Subjective Comments No acute events reported She feels weaker in legs with numbness Active Medications Current Medications Medications (Trade) Dose Ordered Sig/Fredo Route Start Time Stop Time Status Last Admin (NS Flush) 2 ml UNSCH PRN FLUSH 03/16/16 23:00 (NS Flush) 2 ml BID FLUSH 03/17/16 09:00 03/18/16 07:46 (Tylenol) 650 mg Q4H PRN PO 03/16/16 23:00 (Zofran Inj) 4 mg Q6H PRN IVP 03/16/16 23:00 (Dulcolax Supp) 10 mg DAILY PRN [place] 03/16/16 23:00 03/18/16 07:47 (Senokot) 17.2 mg Q12H PRN PO 03/16/16 23:00 (Heparin Inj) 5,000 units Q12H SQ 03/16/16 23:00 03/18/16 10:57 (Narcan Inj) 0.4 mg UNSCH PRN IV 03/16/16 23:00 (D50w (Vial) Inj) 25 ml UNSCH PRN IV PUSH 03/16/16 23:00 (Glucagon Inj) 1 mg UNSCH PRN OTHER 03/16/16 23:00 (Levemir Inj) 50 units Q12HR SQ 03/17/16 09:00 03/18/16 07:48 (Aspirin) 325 mg DAILY PO 03/18/16 09:00 03/18/16 07:45 (Nitrostat Sl) 0.4 mg Q5M PRN SL 03/16/16 23:00 (Morphine Inj) 2 mg Q3H PRN IV 03/16/16 23:30 03/18/16 00:41 Morphine Sulfate 4 mg 4 mg Q3H PRN IV 03/16/16 23:30 03/17/16 05:07 (Rocephin Inj/NS Inj) 100 ml @ 200 mls/hr Q24H IV 03/16/16 23:30 03/17/16 23:26 (Zanaflex) 4 mg Q8HR PO 03/17/16 06:00 03/18/16 12:46 (Lipitor) 20 mg DAILY PO 03/17/16 09:00 03/18/16 07:46 (Protonix) 40 mg DAILY PO 03/17/16 09:00 03/18/16 07:46 (Tenormin) 50 mg Q12HR PO 03/17/16 09:00 03/18/16 07:45 (Prinivil) 40 mg DAILY PO 03/17/16 09:00 03/18/16 07:45 (Neurontin) 300 mg BID PO 03/17/16 09:00 03/18/16 07:45 (Epivir) 150 mg Q12HR PO 03/17/16 09:00 03/18/16 10:57 (Retrovir) 300 mg Q12HR PO 03/17/16 09:00 03/18/16 10:56 (Lyrica) 100 mg Q8HR PO 03/17/16 06:00 03/18/16 15:36 (Lioresal) 20 mg Q8HR PO 03/17/16 06:00 03/18/16 15:36 (Roxicodone) 5 mg Q4H PRN PO 03/17/16 09:15 03/18/16 12:46 (Milk Of Magnesia Liq) 30 ml DAILY PRN PO 03/17/16 10:00 Allergies Allergies Coded Allergies No Known Allergies (Unverified03/16/16) Exam I&O / VS Vital Signs Date Time Temp Pulse Resp B/P Pulse Ox O2 Delivery O2 Flow Rate FiO2 03/18/16 13:46 18 03/18/16 12:37 98.2 76 18 123/58 97 03/18/16 08:58 80 03/18/16 08:37 97.9 81 16 110/57 96 03/18/16 07:46 18 03/18/16 04:13 96.6 87 20 127/60 96 03/18/16 04:00 72 03/18/16 00:00 73 03/17/16 23:46 97.5 76 20 119/54 97 03/17/16 20:00 67 03/17/16 19:58 97 03/17/16 19:46 98.2 74 20 113/58 97 Exam Comments alert and oriented , speech normal CN 2-12 normal 4+/5 Bilateral deltoid, biceps, triceps, interossei 3/5 bilateral iliopsoas, quadriceps, hamstring, tibialis anterior, 3+ bilateral patellar and ankle dtr with bilateral Babinski Objective Radiology Results CT brain--calcific mass along tentorium CT cervical spine--mils spondylosis C56. metal fragments at skull base CT thoracic spine--posterior osteophyte T5 --causes moderate stenosis Micro and Labs Laboratory Tests Test 03/17/16 03/18/16 21:19 05:10 Erythrocyte Sedimentation Rate 59 Anti-Nuclear Antibody Screen POS HIV (1&2) Antibody NEGATIVE White Blood Count 10.5 Red Blood Count 3.57 Hemoglobin 11.1 Hematocrit 33.1 Mean Corpuscular Volume 92.5 Mean Corpuscular Hemoglobin 31.0 Mean Corpuscular Hemoglobin 33.5 Concent Red Cell Distribution Width 19.4 Platelet Count 277 Mean Platelet Volume 8.2 Sodium Level 139 Potassium Level 3.7 Chloride Level 105 Carbon Dioxide Level 25.4 Anion Gap 9 Blood Urea Nitrogen 8 Creatinine 0.51 Estimat Glomerular Filtration 158 Rate Random Glucose 159 Calcium Level 9.4 Date/Time Procedure Status Source Growth 03/16/16 22:40 Urine Culture - Final Complete Urine Catheterized Urine Escherichia Coli Frankie Torres PhD Mar 18, 2016 16:38
[2016-03-18] MEDS ORDERED: DEXAMETHASONE SOD PHOS 4 MG/ML VIAL IV SCH (16:45)
[2016-03-18] MEDS: DEXAMETHASONE SOD PHOS 4 MG/ML VIAL IV SCH ×2 (17:21→23:25)
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
[2016-03-18] MEDS ORDERED: RANITIDINE HCL 150 MG TAB PO SCH (21:00)
[2016-03-18] MEDS: FAMOTIDINE 20 MG TAB PO SCH (21:52)
[2016-03-18] MEDS: cefTRIAXone INJ 1,000 MG in SODIUM CHLORIDE 0.9% INJ 100 ML IV SCH (23:23)
[2016-03-19 05:13] VITALS: BP 166/76; PULSE 71; RESP 20; TEMP 97.5; O2SAT 97
[2016-03-19] MEDS: BACLOFEN 20 MG TAB PO SCH ×3 (05:33→21:33)
[2016-03-19] MEDS: PREGABALIN 100 MG CAP PO SCH ×2 (05:33→21:29)
[2016-03-19] MEDS: DEXAMETHASONE SOD PHOS 4 MG/ML VIAL IV SCH (06:57)
[2016-03-19] MEDS: INSULIN ASPART SUPPLEMENTAL SCALE SQ SCH ×4 (07:11→21:00)
[2016-03-19 07:34] VITALS: BP 130/62; PULSE 70; RESP 16; TEMP 97.4; O2SAT 96
[2016-03-19] MEDS: ZIDOVUDINE 100 MG CAP PO SCH ×2 (07:54→21:28)
[2016-03-19] MEDS: SODIUM CHLORIDE 0.9% FLUSH 5 ML FLUSH FLUSH SCH ×2 (07:54→21:27)
[2016-03-19] MEDS: ASPIRIN 325 MG TAB PO SCH (07:55)
[2016-03-19] MEDS: ATORVASTATIN 20 MG TAB PO SCH (07:55)
[2016-03-19] MEDS: PANTOPRAZOLE SOD 40 MG DELAYED RELEASE TAB PO SCH (07:55)
[2016-03-19] MEDS: ATENOLOL 50 MG TAB PO SCH ×2 (07:55→21:32)
[2016-03-19] MEDS: GABAPENTIN 300 MG CAP PO SCH ×2 (07:55→21:31)
[2016-03-19] MEDS: LISINOPRIL 20 MG TAB PO SCH (07:55)
[2016-03-19] MEDS: FAMOTIDINE 20 MG TAB PO SCH ×2 (07:55→21:32)
[2016-03-19] MEDS: INSULIN DETEMIR 100 UNITS/ML VIAL SQ SCH ×2 (08:00→21:33)
[2016-03-19 08:03] LABS: AUTOMATED NEUTROPHIL # 10.3 TH/MM3 (1.8-7.7); BASOPHIL % 0.2 % (0.0-2.0); HEMATOCRIT 34.4 % (35.0-46.0); HEMO FLAGS DIFF FINAL; LYMPH % 17.9 % (9.0-44.0); LYMPHOCYTE # 2.4 TH/MM3 (1.0-4.8); MEAN CELL VOLUME 91.5 FL (80.0-100.0); MEAN CORPUSCULAR HEMOGLOBIN 30.7 PG (27.0-34.0); MEAN CORPUSCULAR HGB CONC 33.5 % (32.0-36.0); MONO % 4.7 % (0.0-8.0); NEUT % 77.2 % (16.0-70.0); PLATELET COUNT 314 TH/MM3 (150-450); RED BLOOD COUNT 3.76 MIL/MM3 (4.00-5.30); WHITE BLOOD COUNT 13.3 TH/MM3 (4.0-11.0)
[2016-03-19 08:39] LABS: ANION GAP 10 MEQ/L (5-15); BICARBONATE 25.5 MEQ/L (21.0-32.0); BLOOD UREA NITROGEN 8 MG/DL (7-18); CHLORIDE 101 MEQ/L (98-107); GLOMERULAR FILTRATION RATE 151 ML/MIN (>89); POTASSIUM 3.9 MEQ/L (3.5-5.1); SODIUM (NA) 136 MEQ/L (136-145)
[2016-03-19] MEDS: methylPREDNISolone SO SUCC INJ 250 MG in SODIUM CHLORIDE 0.9% INJ 100 ML IV SCH ×4 (10:55→23:36)
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
[2016-03-19 12:44] VITALS: BP 189/84; PULSE 66; RESP 18; TEMP 98.3; O2SAT 97
[2016-03-19] MEDS ORDERED: cloNIDine HCL 0.1 MG TAB PO PRN (13:15)
[2016-03-19 14:15] LABS: HEMOGLOBIN A1a 0.9 %; HEMOGLOBIN A1b 0.6 %; HEMOGLOBIN Ao 53.6 %; HEMOGLOBIN F 1.5 %; HEMOGLOBIN LA1C 1.8 %
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
[2016-03-19 14:50] VITALS: BP 140/64; PULSE 70; RESP 18; TEMP 95.4; O2SAT 95
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
[2016-03-19] MEDS ORDERED: PREGABALIN 300 MG PO SCH (21:00)
--- NOTE | 2016-03-19 21:13 | HHI.PR ---
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--she states she was told this may have been a "false positive" Plan iv solumedrol for possible transverse myelitis cover hyperglycemia with SS insulin LP recheck HTLV 1 and 2 titer Diagnosis/Plan: Subjective Subjective Comments No acute events reported no change in le weakness or ue weakness Active Medications Current Medications Medications (Trade) Dose Ordered Sig/Fredo Route Start Time Stop Time Status Last Admin (NS Flush) 2 ml UNSCH PRN FLUSH 03/16/16 23:00 (NS Flush) 2 ml BID FLUSH 03/17/16 09:00 03/19/16 07:54 (Tylenol) 650 mg Q4H PRN PO 03/16/16 23:00 (Zofran Inj) 4 mg Q6H PRN IVP 03/16/16 23:00 (Dulcolax Supp) 10 mg DAILY PRN VA 03/16/16 23:00 03/18/16 07:47 (Senokot) 17.2 mg Q12H PRN PO 03/16/16 23:00 (Narcan Inj) 0.4 mg UNSCH PRN IV 03/16/16 23:00 (D50w (Vial) Inj) 25 ml UNSCH PRN IV PUSH 03/16/16 23:00 (Glucagon Inj) 1 mg UNSCH PRN OTHER 03/16/16 23:00 (Levemir Inj) 50 units Q12HR SQ 03/17/16 09:00 03/19/16 08:00 (Nitrostat Sl) 0.4 mg Q5M PRN SL 03/16/16 23:00 (Morphine Inj) 2 mg Q3H PRN IV 03/16/16 23:30 03/18/16 00:41 Morphine Sulfate 4 mg 4 mg Q3H PRN IV 03/16/16 23:30 03/17/16 05:07 (Rocephin Inj/NS Inj) 100 ml @ 200 mls/hr Q24H IV 03/16/16 23:30 03/18/16 23:23 (Zanaflex) 4 mg Q8HR PO 03/17/16 06:00 03/19/16 13:42 (Lipitor) 20 mg DAILY PO 03/17/16 09:00 03/19/16 07:55 (Protonix) 40 mg DAILY PO 03/17/16 09:00 03/19/16 07:55 (Tenormin) 50 mg Q12HR PO 03/17/16 09:00 03/19/16 07:55 (Prinivil) 40 mg DAILY PO 03/17/16 09:00 03/19/16 07:55 (Neurontin) 300 mg BID PO 03/17/16 09:00 03/19/16 07:55 (Epivir) 150 mg Q12HR PO 03/17/16 09:00 03/19/16 07:55 (Retrovir) 300 mg Q12HR PO 03/17/16 09:00 03/19/16 07:54 (Lioresal) 20 mg Q8HR PO 03/17/16 06:00 03/19/16 13:42 (Roxicodone) 5 mg Q4H PRN PO 03/17/16 09:15 03/19/16 18:07 (Milk Of Magnsam Liq) 30 ml DAILY PRN PO 03/17/16 10:00 Famotidine 20 mg 20 mg Q12H PO 03/18/16 21:00 03/19/16 07:55 (SoluMEDROL INJ/ NS Inj) 104 ml @ 208 mls/hr Q6H IV 03/19/16 11:00 03/19/16 19:00 (Catapres) 0.1 mg Q6H PRN PO 03/19/16 13:15 (Norvasc) 10 mg DAILY PO 03/19/16 13:15 03/19/16 13:42 (Lyrica) 300 mg Q12HR PO 03/19/16 21:00 Allergies Allergies Coded Allergies No Known Allergies (Unverified03/16/16) Exam I&O / VS 03/18/16 03/18/16 03/19/16 15:00 23:00 07:00 # Bowel Movements 1 Vital Signs Date Time Temp Pulse Resp B/P Pulse Ox O2 Delivery O2 Flow Rate FiO2 03/19/16 20:16 18 03/19/16 14:50 95.4 70 18 140/64 95 03/19/16 12:44 98.3 66 18 189/84 97 03/19/16 07:34 97.4 70 16 130/62 96 03/19/16 05:13 97.5 71 20 166/76 97 03/18/16 23:32 97.6 72 20 168/75 97 Exam Comments alert and oriented , speech normal CN 2-12 normal 4+/5 Bilateral deltoid, biceps, triceps, interossei 3/5 bilateral iliopsoas, quadriceps, hamstring, tibialis anterior, 3+ bilateral patellar and ankle dtr with bilateral Babinski Objective Radiology Results I reviewed the ct myelogram of the cervical, thoracic and lumbar spines done last January at [facility] in [place]--there was no evidence for cord compression or significant stenosis in cervical or thoracic spine Micro and Labs Laboratory Tests Test 03/19/16 07:32 White Blood Count 13.3 Red Blood Count 3.76 Hemoglobin 11.5 Hematocrit 34.4 Mean Corpuscular Volume 91.5 Mean Corpuscular Hemoglobin 30.7 Mean Corpuscular Hemoglobin 33.5 Concent Red Cell Distribution Width 19.0 Platelet Count 314 Mean Platelet Volume 8.0 Neutrophils (%) (Auto) 77.2 Lymphocytes (%) (Auto) 17.9 Monocytes (%) (Auto) 4.7 Eosinophils (%) (Auto) 0.0 Basophils (%) (Auto) 0.2 Neutrophils # (Auto) 10.3 Lymphocytes # (Auto) 2.4 Monocytes # (Auto) 0.6 Eosinophils # (Auto) 0.0 Basophils # (Auto) 0.0 CBC Comment DIFF FINAL Differential Comment Sodium Level 136 Potassium Level 3.9 Chloride Level 101 Carbon Dioxide Level 25.5 Anion Gap 10 Blood Urea Nitrogen 8 Creatinine 0.53 Estimat Glomerular Filtration 151 Rate Random Glucose 214 Hemoglobin A1c 8.1 Calcium Level 9.3 Thyroid Stimulating Hormone 0.869 3rd Gen Date/Time Procedure Status Source Growth 03/16/16 22:40 Urine Culture - Final Complete Urine Catheterized Urine Escherichia Coli Frankie Torres PhD Mar 19, 2016 21:13
[2016-03-19] MEDS ORDERED: DEXTROSE 50% IN WATER 50 ML VIAL(D50) IV PUSH PRN (21:15)
[2016-03-19] MEDS ORDERED: GLUCAGON 1 MG/ML VIAL OTHER PRN (21:15)
[2016-03-19 23:35] VITALS: BP 147/87; PULSE 87; RESP 18; TEMP 98.4; O2SAT 98
[2016-03-20 00:20] VITALS: BP 147/70; PULSE 67; RESP 21; TEMP 98.4; O2SAT 97
[2016-03-20] MEDS: cefTRIAXone INJ 1,000 MG in SODIUM CHLORIDE 0.9% INJ 100 ML IV SCH ×2 (00:36→23:11)
[2016-03-20] MEDS: methylPREDNISolone SO SUCC INJ 250 MG in SODIUM CHLORIDE 0.9% INJ 100 ML IV SCH ×3 (05:38→18:18)
[2016-03-20] MEDS: BACLOFEN 20 MG TAB PO SCH ×3 (05:42→23:10)
[2016-03-20] MEDS: INSULIN NovoLIN REGULAR SUPPLEMENTAL SCALE SQ SCH ×4 (06:13→20:59)
[2016-03-20 06:29] LABS: AUTOMATED NEUTROPHIL # 14.6 TH/MM3 (1.8-7.7); BASOPHIL % 0.1 % (0.0-2.0); HEMATOCRIT 35.2 % (35.0-46.0); HEMO FLAGS DIFF FINAL; LYMPHOCYTE # 2.1 TH/MM3 (1.0-4.8); MEAN CELL VOLUME 91.8 FL (80.0-100.0); MEAN CORPUSCULAR HEMOGLOBIN 30.6 PG (27.0-34.0); MEAN CORPUSCULAR HGB CONC 33.3 % (32.0-36.0); MONO % 3.3 % (0.0-8.0); NEUT % 84.6 % (16.0-70.0); PLATELET COUNT 315 TH/MM3 (150-450); RED BLOOD COUNT 3.83 MIL/MM3 (4.00-5.30); RED CELL DISTRIBUTION WIDTH 18.9 % (11.6-17.2); WHITE BLOOD COUNT 17.2 TH/MM3 (4.0-11.0)
[2016-03-20 06:45] LABS: BICARBONATE 23.2 MEQ/L (21.0-32.0)
[2016-03-20 07:23] VITALS: BP 164/74; PULSE 60; RESP 18; TEMP 97.9; O2SAT 95
[2016-03-20] MEDS: PREGABALIN 100 MG CAP PO SCH ×2 (08:46→20:54)
[2016-03-20] MEDS: ZIDOVUDINE 100 MG CAP PO SCH ×2 (08:46→20:55)
[2016-03-20] MEDS: PANTOPRAZOLE SOD 40 MG DELAYED RELEASE TAB PO SCH (08:47)
[2016-03-20] MEDS: LISINOPRIL 20 MG TAB PO SCH (08:47)
[2016-03-20] MEDS: GABAPENTIN 300 MG CAP PO SCH ×2 (08:47→20:54)
[2016-03-20] MEDS: INSULIN DETEMIR 100 UNITS/ML VIAL SQ SCH ×2 (08:48→20:55)
[2016-03-20] MEDS: ATENOLOL 50 MG TAB PO SCH ×2 (08:48→20:55)
[2016-03-20] MEDS: FAMOTIDINE 20 MG TAB PO SCH ×2 (08:48→20:54)
[2016-03-20] MEDS: ATORVASTATIN 20 MG TAB PO SCH (08:48)
[2016-03-20] MEDS: SODIUM CHLORIDE 0.9% FLUSH 5 ML FLUSH FLUSH SCH ×2 (08:49→20:53)
[2016-03-20 09:34] LABS: APTT (PATIENT) 25.9 SEC (24.3-30.1); INTERNATIONAL NORMALIZED RATIO 1.1 RATIO; PROTHROMBIN TIME - PATIENT 11.9 SEC (9.8-11.6)
[2016-03-20 12:02] VITALS: BP 137/76; PULSE 66; RESP 20; TEMP 97.4; O2SAT 96
[2016-03-20 15:54] VITALS: BP 124/62; PULSE 64; RESP 14; TEMP 97.4; O2SAT 96
--- NOTE | 2016-03-20 17:59 | RADRPT ---
EXAM DATE/TIME: 03/20/2016 17:45 [facility] COMPARISON: No previous studies available for comparison. INDICATIONS : Evaluate for pneumonia. RADIATION DOSE: 9.67 CTDIvol (mGy) MEDICAL HISTORY : Hypertension. Diabetes mellitus type 2. SURGICAL HISTORY : Cholecystectomy. ENCOUNTER: Initial ACUITY: 2 days PAIN SCALE: 0/10 LOCATION: Bilateral chest TECHNIQUE: Volumetric scanning of the chest was performed. Using automated exposure control and adjustment of t he mA and/or kV according to patient size, radiation dose was kept as low as reasonably achievable to obtain optimal diagnostic quality images. FINDINGS: LUNGS: There is no consolidation or pneumothorax. No concerning pulmonary nodule is visualized. Tiny focal bulla is noted within the left lower lobe. PLEURAE: There is no pleural thickening or pleural effusion. MEDIASTINUM: The heart and great vessels demonstrate no acute abnormality. There is no mediastinal or hilar lymph adenopathy. Mild cardiomegaly. Minimal coronary artery calcifications are noted. AXILLAE: Within normal limits. No lymphadenopathy. MUSCULOSKELETAL: Within normal limits for patient age. MISCELLANEOUS: The visualized upper abdominal organs demonstrate no acute abnormality. CONCLUSION: 1. No acute focal pulmonary infiltrate or pulmonary vascular congestion. 2. Tiny focal bulla within the left lower lobe. 3. Mild cardiomegaly. 4. Minimal coronary artery calcifications. Lazaro Vasquez MD on March 20, 2016 at 17:53 Board Certified Radiologist. This report was verified electronically.
--- NOTE | 2016-03-20 18:00 | HHI.PR ---
Subjective Remarks still unable to get a room Objective Vital Signs Date Time Temp Pulse Resp B/P Pulse Ox O2 Delivery O2 Flow Rate FiO2 03/20/16 15:54 97.4 64 14 124/62 96 03/20/16 12:02 97.4 66 20 137/76 96 03/20/16 09:46 16 03/20/16 07:23 97.9 60 18 164/74 95 03/20/16 06:50 18 03/20/16 00:20 98.4 67 21 147/70 97 03/19/16 23:35 98.4 87 18 147/87 98 Result Diagram: 03/20/1633 03/20/16532 Objective Remarks GENERAL: SKIN: Warm and dry. HEAD: Atraumatic. Normocephalic. EYES: Pupils equal and round. No scleral icterus. No injection or drainage. ENT: No nasal bleeding or discharge. Mucous membranes pink and moist. NECK: Trachea midline. No JVD. CARDIOVASCULAR: Regular rate and rhythm. RESPIRATORY: No accessory muscle use. Clear to auscultation. Breath sounds equal bilaterally. GASTROINTESTINAL: Abdomen soft, non-tender, nondistended. Hepatic and splenic margins not palpable.obese MUSCULOSKELETAL: Extremities without clubbing, cyanosis, or edema. No obvious deformities. NEUROLOGICAL: Awake and alert. No obvious cranial nerve deficits. Motor grossly within normal limits. diminished strength in lower extremis Normal speech. PSYCHIATRIC: depressed has been aggressive Medications and IVs Current Medications Medications (Trade) Dose Ordered Sig/Fredo Route PRN Reason Start Time Stop Time Status Last Admin Dose Admin IV Flush (NS Flush) 2 ml UNSCH PRN FLUSH FLUSH AFTER USING IV ACCESS 03/16/16 23:00 IV Flush (NS Flush) 2 ml BID FLUSH 03/17/16 09:00 03/20/16 08:49 Acetaminophen (Tylenol) 650 mg Q4H PRN PO TEMP > 100.4 03/16/16 23:00 Ondansetron HCl (Zofran Inj) 4 mg Q6H PRN IVP NAUSEA OR VOMITING 03/16/16 23:00 Bisacodyl (Dulcolax Supp) 10 mg DAILY PRN CO CONSTIPATION 03/16/16 23:00 03/18/16 07:47 Sennosides (Senokot) 17.2 mg Q12H PRN PO CONSTIPATION 03/16/16 23:00 Naloxone HCl (Narcan Inj) 0.4 mg UNSCH PRN IV SEE LABEL COMMENTS 03/16/16 23:00 Insulin Detemir (Levemir Inj) 50 units Q12HR SQ 03/17/16 09:00 03/20/16 08:48 Nitroglycerin (Nitrostat Sl) 0.4 mg Q5M PRN SL X 3 doses for chest pain 03/16/16 23:00 Morphine Sulfate (Morphine Inj) 2 mg Q3H PRN IV Pain 3-5; if unable to take PO 03/16/16 23:30 03/18/16 00:41 Morphine Sulfate 4 mg 4 mg Q3H PRN IV Pain 6-10;if unable to take PO 03/16/16 23:30 03/17/16 05:07 Ceftriaxone Sodium/Sodium Chloride (Rocephin Inj/NS Inj) 100 ml @ 200 mls/hr Q24H IV 03/16/16 23:30 03/20/16 00:36 Tizanidine HCl (Zanaflex) 4 mg Q8HR PO 03/17/16 06:00 03/20/16 15:49 Atorvastatin Calcium (Lipitor) 20 mg DAILY PO 03/17/16 09:00 03/20/16 08:48 Pantoprazole Sodium (Protonix) 40 mg DAILY PO 03/17/16 09:00 03/20/16 08:47 Atenolol (Tenormin) 50 mg Q12HR PO 03/17/16 09:00 03/20/16 08:48 Lisinopril (Prinivil) 40 mg DAILY PO 03/17/16 09:00 03/20/16 08:47 Gabapentin (Neurontin) 300 mg BID PO 03/17/16 09:00 03/20/16 08:47 Lamivudine (Epivir) 150 mg Q12HR PO 03/17/16 09:00 03/20/16 08:46 Zidovudine (Retrovir) 300 mg Q12HR PO 03/17/16 09:00 03/20/16 08:46 Baclofen (Lioresal) 20 mg Q8HR PO 03/17/16 06:00 03/20/16 15:49 Oxycodone HCl (Roxicodone) 5 mg Q4H PRN PO PAIN SCALE 6 TO 10 03/17/16 09:15 03/20/16 11:48 Magnesium Hydroxide (Milk Of Magnesia Liq) 30 ml DAILY PRN PO CONSTIPATION 03/17/16 10:00 Famotidine 20 mg 20 mg Q12H PO 03/18/16 21:00 03/20/16 08:48 Methylprednisolone Sodium Succinate/ Sodium Chloride (SoluMEDROL INJ/ NS Inj) 104 ml @ 208 mls/hr Q6H IV 03/19/16 11:00 03/20/16 11:49 Clonidine (Catapres) 0.1 mg Q6H PRN PO SYS BP GREATER THAN 160 MMHG 03/19/16 13:15 Amlodipine Besylate (Norvasc) 10 mg DAILY PO 03/19/16 13:15 03/20/16 08:47 Pregabalin (Lyrica) 300 mg Q12HR PO 03/19/16 21:00 03/20/16 08:46 Dextrose (D50w (Vial) Inj) 25 ml UNSCH PRN IV PUSH HYPOGLYCEMIA-SEE COMMENTS 03/19/16 21:15 Glucagon (Glucagon Inj) 1 mg UNSCH PRN OTHER HYPOGLYCEMIA-SEE COMMENTS 03/19/16 21:15 Assessment and Plan Assessment and Plan neuro w[facility] in [facility] for depression and aggressionuti on cephalozin ck lab in am Discharge Planning Julio C Malone DO Mar 20, 2016 18:00
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
[2016-03-20 19:11] LABS: AUTOMATED NEUTROPHIL # 19.1 TH/MM3 (1.8-7.7); BASOPHIL # 0.1 TH/MM3 (0-0.2); BASOPHIL % 0.3 % (0.0-2.0); HEMATOCRIT 35.2 % (35.0-46.0); HEMO FLAGS DIFF FINAL; LYMPH % 10.1 % (9.0-44.0); LYMPHOCYTE # 2.3 TH/MM3 (1.0-4.8); MEAN CELL VOLUME 92.6 FL (80.0-100.0); MEAN CORPUSCULAR HEMOGLOBIN 30.9 PG (27.0-34.0); MEAN CORPUSCULAR HGB CONC 33.4 % (32.0-36.0); MONO % 5.3 % (0.0-8.0); NEUT % 84.3 % (16.0-70.0); PLATELET COUNT 326 TH/MM3 (150-450); RED CELL DISTRIBUTION WIDTH 19.5 % (11.6-17.2); WHITE BLOOD COUNT 22.6 TH/MM3 (4.0-11.0)
[2016-03-20 19:28] LABS: BICARBONATE 22.5 MEQ/L (21.0-32.0); POTASSIUM 3.8 MEQ/L (3.5-5.1)
[2016-03-20 19:38] VITALS: BP 138/65; PULSE 61; RESP 16; TEMP 95.9; O2SAT 97
[2016-03-20 20:37] LABS: WESTERGREN SEDIMENTATION RATE 46 mm/hr (0-20)
[2016-03-20 23:49] VITALS: BP 149/67; PULSE 70; RESP 20; TEMP 98.6; O2SAT 99
[2016-03-21] MEDS: methylPREDNISolone SO SUCC INJ 250 MG in SODIUM CHLORIDE 0.9% INJ 100 ML IV SCH ×3 (00:31→12:35)
[2016-03-21] MEDS: BACLOFEN 20 MG TAB PO SCH ×3 (05:46→22:20)
[2016-03-21] MEDS: INSULIN NovoLIN REGULAR SUPPLEMENTAL SCALE SQ SCH ×4 (06:52→19:52)
[2016-03-21 08:23] VITALS: BP 190/84; PULSE 69; RESP 16; TEMP 97.9; O2SAT 98
[2016-03-21] MEDS: FAMOTIDINE 20 MG TAB PO SCH ×2 (08:40→19:55)
[2016-03-21] MEDS: ATENOLOL 50 MG TAB PO SCH ×2 (08:40→19:53)
[2016-03-21] MEDS: ZIDOVUDINE 100 MG CAP PO SCH ×2 (08:40→19:53)
[2016-03-21] MEDS: INSULIN DETEMIR 100 UNITS/ML VIAL SQ SCH ×2 (08:40→19:51)
[2016-03-21] MEDS: GABAPENTIN 300 MG CAP PO SCH ×2 (08:40→19:54)
[2016-03-21] MEDS: PANTOPRAZOLE SOD 40 MG DELAYED RELEASE TAB PO SCH (08:41)
[2016-03-21] MEDS: ATORVASTATIN 20 MG TAB PO SCH (08:41)
[2016-03-21] MEDS: PREGABALIN 100 MG CAP PO SCH ×2 (08:41→22:20)
[2016-03-21] MEDS: LISINOPRIL 20 MG TAB PO SCH (08:41)
[2016-03-21] MEDS: SODIUM CHLORIDE 0.9% FLUSH 5 ML FLUSH FLUSH SCH ×2 (08:42→21:00)
--- NOTE | 2016-03-21 10:14 | PD.RAD ---
Post Procedure Progress Note Pre Procedure Diagnosis: (1) Myelopathy Post Procedure Diagnosis: (1) Myelopathy Procedure Date: Mar 21, 2016 Supervising Radiologist: Braulio Lmi Proceduralist/Assist: Cole Corrales, RT(R), RT Ann(R)() Anesthesia: Local Plan of Activity Patient to Unit: Nursing Unit Patient Condition: Good See PACS Report for procedural detail/treatment Spinal Procedure Lumbar Puncture L2-L3 Fluid Removal (CCs): 9 Fluid Description: Clear Puncture Time: 09:57 Braulio Lim MD Mar 21, 2016 10:14
--- NOTE | 2016-03-21 11:46 | RADRPT ---
EXAM DATE/TIME: 03/21/2016 09:25 [facility] COMPARISON: No previous studies available for comparison. INDICATIONS : Patient presents with thoracic myelopathy in need of lumbar puncture to rule out transverse myelitis. MEDICAL HISTORY : Diabetes Morbid obesity Neuropathy HTN Hyperlipidemia Chronic back pain SURGICAL HISTORY : Lumbar fusion Gilda x3 ENCOUNTER: Initial ACUITY: 3 days PAIN SCORE: 8/10 LOCATION: Generalized abdomen pain. LUMBAR PUNCTURE TIME: 09:57 hours FLUORO TIME: 0.9 minutes ACCESS LEVEL: L2-3 FLUID: 9 cc of clear CSF was collected and sent to the laboratory for analysis. PROCEDURE : 1. Fluoroscopic guided lumbar puncture. The risks, benefits and alternatives to the procedure were explained and verbal and written consent w as obtained. The site was prepped in sterile fashion. Full sterile technique was used, including ca p, mask, sterile gloves and gown and a large sterile sheet. Hand hygiene and 2% chlorhexidine and/or betadine/alcohol prep was utilized per protocol for cutaneous antisepsis. The skin and subcutaneous tissues were infiltrated with local anesthetic solution. With fluoroscopic guidance the lumbar thecal sac was punctured at the level above. The fluid describ ed above was removed without difficulty. The patient tolerated the procedure well and there were no complications. CONCLUSION: Uncomplicated fluoroscopically guided lumbar puncture. Braulio Lim MD on March 21, 2016 at 11:44 Board Certified Radiologist. This report was verified electronically.
[2016-03-21 12:10] LABS: SUPERNATE COLOR TUBE #2 CLEAR (CLEAR); VOLUME TUBE # 2 2.1 ML; WBC TUBE #1 58 /MM3 (0-10)
[2016-03-21 12:11] LABS: GROSS BLOOD TUBE #2 TRACE (0); GROSS BLOOD TUBE #3 TRACE (0); SUPERNATE COLOR TUBE #3 CLEAR (CLEAR); VOLUME TUBE # 3 2.2 ML
[2016-03-21 12:12] LABS: CSF LYMPHOCYTES 75 %; CSF MONOCYTES 4 %; CSF NEUTROPHILS 21 %
[2016-03-21 12:17] LABS: GROSS BLOOD TUBE #1 1+ (0); SUPERNATE COLOR TUBE #1 CLEAR (CLEAR)
[2016-03-21 12:19] LABS: GROSS BLOOD TUBE #4 TRACE (0); SUPERNATE COLOR TUBE #4 CLEAR (CLEAR)
[2016-03-21 12:20] VITALS: BP 145/69; PULSE 69; RESP 18; TEMP 97.8; O2SAT 98
[2016-03-21 12:21] LABS: CSF LYMPHOCYTES 93 %; CSF NEUTROPHILS 2 %; GROSS BLOOD TUBE #4 TRACE (0); SUPERNATE COLOR TUBE #4 CLEAR (CLEAR); WBC TUBE #4 22 /MM3 (0-10)
[2016-03-21 12:22] LABS: CSF MONOCYTES 5 %
[2016-03-21 14:45] VITALS: BP 134/73; PULSE 62; RESP 20; TEMP 96.6; O2SAT 97
[2016-03-21] MEDS: CEFUROXIME AXETIL 500 MG TAB PO SCH ×2 (15:21→19:53)
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
[2016-03-21] MEDS ORDERED: SERTRALINE HCL 100 MG TAB PO ONE (15:45)
[2016-03-21 16:00] VITALS: BP 130/70; PULSE 90; RESP 18; TEMP 97.6; O2SAT 97
[2016-03-21 19:00] VITALS: BP 138/71; PULSE 63; RESP 18; TEMP 96.7; O2SAT 98
--- NOTE | 2016-03-21 20:47 | HHI.PR ---
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 Plan reduce dose of solumedrol follow up confirmatory test for HTLV 1/2 Infectious disease consult Diagnosis/Plan: Subjective Subjective Comments No acute events reported She does not notice significant improvement in LE or UE strength or numbnes Active Medications Current Medications Medications (Trade) Dose Ordered Sig/Fredo Route Start Time Stop Time Status Last Admin (NS Flush) 2 ml UNSCH PRN FLUSH 03/16/16 23:00 (NS Flush) 2 ml BID FLUSH 03/17/16 09:00 03/21/16 08:42 (Tylenol) 650 mg Q4H PRN PO 03/16/16 23:00 (Zofran Inj) 4 mg Q6H PRN IVP 03/16/16 23:00 (Dulcolax Supp) 10 mg DAILY PRN [place] 03/16/16 23:00 03/18/16 07:47 (Senokot) 17.2 mg Q12H PRN PO 03/16/16 23:00 (Narcan Inj) 0.4 mg UNSCH PRN IV 03/16/16 23:00 (Levemir Inj) 50 units Q12HR SQ 03/17/16 09:00 03/21/16 19:51 (Nitrostat Sl) 0.4 mg Q5M PRN SL 03/16/16 23:00 (Morphine Inj) 2 mg Q3H PRN IV 03/16/16 23:30 03/18/16 00:41 (Morphine Inj) 4 mg Q3H PRN IV 03/16/16 23:30 03/17/16 05:07 (Zanaflex) 4 mg Q8HR PO 03/17/16 06:00 03/20/16 15:49 (Lipitor) 20 mg DAILY PO 03/17/16 09:00 03/21/16 08:41 (Protonix) 40 mg DAILY PO 03/17/16 09:00 03/21/16 08:41 (Tenormin) 50 mg Q12HR PO 03/17/16 09:00 03/21/16 19:53 (Prinivil) 40 mg DAILY PO 03/17/16 09:00 03/21/16 08:41 (Neurontin) 300 mg BID PO 03/17/16 09:00 03/21/16 19:54 (Epivir) 150 mg Q12HR PO 03/17/16 09:00 03/21/16 19:54 (Retrovir) 300 mg Q12HR PO 03/17/16 09:00 03/21/16 19:53 (Lioresal) 20 mg Q8HR PO 03/17/16 06:00 03/21/16 13:52 (Roxicodone) 5 mg Q4H PRN PO 03/17/16 09:15 03/21/16 12:35 (Milk Of Vito Liq) 30 ml DAILY PRN PO 03/17/16 10:00 Famotidine 20 mg 20 mg Q12H PO 03/18/16 21:00 03/21/16 19:55 (SoluMEDROL INJ/ NS Inj) 104 ml @ 208 mls/hr Q6H IV 03/19/16 11:00 03/21/16 12:35 (Catapres) 0.1 mg Q6H PRN PO 03/19/16 13:15 (Norvasc) 10 mg DAILY PO 03/19/16 13:15 03/21/16 08:41 (Lyrica) 300 mg Q12HR PO 03/19/16 21:00 03/21/16 08:41 (D50w (Vial) Inj) 25 ml UNSCH PRN IV PUSH 03/19/16 21:15 (Glucagon Inj) 1 mg UNSCH PRN OTHER 03/19/16 21:15 (Ceftin) 500 mg Q12HR PO 03/21/16 13:45 03/31/16 13:44 03/21/16 19:53 Allergies Allergies Coded Allergies No Known Allergies (Unverified03/16/16) Exam I&O / VS Vital Signs Date Time Temp Pulse Resp B/P Pulse Ox O2 Delivery O2 Flow Rate FiO2 03/21/16 16:00 97.6 90 18 130/70 97 03/21/16 14:45 96.6 62 20 134/73 97 03/21/16 13:35 14 03/21/16 12:20 97.8 69 18 145/69 98 03/21/16 08:23 97.9 69 16 190/84 98 03/20/16 23:49 98.6 70 20 149/67 99 03/20/16 21:56 20 Exam Comments alert and oriented , speech normal CN 2-12 normal 4+/5 Bilateral deltoid, biceps, triceps, interossei 3/5 bilateral iliopsoas, quadriceps, hamstring, tibialis anterior, 3+ bilateral patellar and ankle dtr with bilateral Babinski Objective Micro and Labs Laboratory Tests Test 03/21/16 03/21/16 00:43 09:57 Random Glucose 354 CSF Volume (Tube 1) 2.0 CSF Supernatant Color (tube 1) CLEAR CSF Gross Blood (Tube 1) 1+ CSF WBC (Tube 1) 58 CSF RBC (Tube 1) 3697 CSF Volume (Tube 2) 2.1 CSF Supernatant Color (tube 2) CLEAR CSF Gross Blood (Tube 2) TRACE CSF Volume (Tube 3) 2.2 CSF Supernatant Color (tube 3) CLEAR CSF Gross Blood (Tube 3) TRACE CSF Volume (Tube 4) 3.0 CSF Supernatant Color (tube 4) CLEAR CSF Gross Blood (Tube 4) TRACE CSF WBC (Tube 4) 22 CSF RBC (Tube 4) 12 CSF Neutrophils 2 CSF Lymphocytes 93 CSF Monocytes 5 CSF Glucose 167 CSF Total Protein 36.8 Date/Time Procedure Status Source Growth 03/21/16 09:57 Gram Stain - Final Resulted Cerebral Spinal Fluid Lumbar Puncture 03/21/16 09:57 CSF Culture Resulted Cerebral Spinal Fluid Lumbar Puncture Pending 03/21/16 09:57 Fungal Smear - Final Resulted Cerebral Spinal Fluid Lumbar Puncture NO FUNGAL ELEMENTS SEEN. 03/21/16 09:57 Fungal Culture Resulted Cerebral Spinal Fluid Lumbar Puncture Pending 03/21/16 09:57 Acid Fast Stain Received Cerebral Spinal Fluid Lumbar Puncture Pending 03/21/16 09:57 Mycobacterial Culture Received Cerebral Spinal Fluid Lumbar Puncture Pending 03/16/16 22:40 Urine Culture - Final Complete Urine Catheterized Urine Escherichia Coli Frankie Torres PhD MD Mar 21, 2016 20:47
[2016-03-21] MEDS: methylPREDNISolone SOD SUCC 125 MG/2 ML VIAL IV SCH (22:22)
[2016-03-21] MEDS ORDERED: SODIUM CHLORIDE 0.9% IV SCH (23:00)
[2016-03-21] MEDS ORDERED: METHYLPREDNISOLONE SO SUCC IV SCH (23:00)
[2016-03-22] VITALS: BP 146/68; PULSE 61; RESP 17; TEMP 96.9; O2SAT 97
[2016-03-22 04:00] VITALS: BP 161/83; PULSE 61; RESP 18; TEMP 97.8; O2SAT 97
[2016-03-22] MEDS: BACLOFEN 20 MG TAB PO SCH ×3 (05:33→21:16)
[2016-03-22] MEDS: methylPREDNISolone SOD SUCC 125 MG/2 ML VIAL IV SCH ×4 (05:34→23:42)
[2016-03-22] MEDS: INSULIN NovoLIN REGULAR SUPPLEMENTAL SCALE SQ SCH ×4 (06:11→20:25)
[2016-03-22 08:32] VITALS: BP 154/93; PULSE 62; RESP 20; TEMP 97.4; O2SAT 96
[2016-03-22] MEDS: PREGABALIN 100 MG CAP PO SCH ×2 (10:05→20:16)
[2016-03-22] MEDS: ZIDOVUDINE 100 MG CAP PO SCH ×2 (10:07→21:16)
[2016-03-22] MEDS: LISINOPRIL 20 MG TAB PO SCH (10:07)
[2016-03-22] MEDS: ATORVASTATIN 20 MG TAB PO SCH (10:07)
[2016-03-22] MEDS: ATENOLOL 50 MG TAB PO SCH ×2 (10:07→21:16)
[2016-03-22] MEDS: CEFUROXIME AXETIL 500 MG TAB PO SCH ×2 (10:08→21:16)
[2016-03-22] MEDS: PANTOPRAZOLE SOD 40 MG DELAYED RELEASE TAB PO SCH (10:08)
[2016-03-22] MEDS: FAMOTIDINE 20 MG TAB PO SCH ×2 (10:08→21:16)
[2016-03-22] MEDS: INSULIN DETEMIR 100 UNITS/ML VIAL SQ SCH ×2 (10:09→20:26)
[2016-03-22 11:24] VITALS: BP 139/80; PULSE 66; RESP 20; TEMP 97.7; O2SAT 98
[2016-03-22] MEDS: GABAPENTIN 300 MG CAP PO SCH ×2 (11:27→21:16)
[2016-03-22] MEDS: SODIUM CHLORIDE 0.9% FLUSH 5 ML FLUSH FLUSH SCH ×2 (11:36→21:19)
[2016-03-22 16:00] VITALS: BP 140/78; PULSE 80; RESP 20; TEMP 97; O2SAT 96
[2016-03-22 16:07] LABS: ALBUMIN SERUM 3490 mg/dL (3200 - 4800); IGG CSF 5.4 mg/dL (<=8.1); IGG INDEX CSF 1.03 (<=0.85); IGG SERUM 1410 mg/dL (767 - 1590); IGG/ALBUMIN CSF 0.41 (<=0.21); OLIGOCLONAL BANDING CSF 14 bands (()); OLIGOCLONAL BANDING INTERPRET 13 bands (<4); OLIGOCLONAL BANDING SERUM 1 bands (()); SYNTHESIS RATE CSF 12.71 mg/24 h (<=12)
[2016-03-22] MEDS: BISACODYL 10 MG SUPP PR PRN (16:44)
--- NOTE | 2016-03-22 17:35 | HHI.PR ---
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 or sarcoidosis Plan reduce dose of solumedrol due to hyperglycemia and continue another 3-4 days follow up confirmatory test for HTLV 1/2 Diagnosis/Plan: Subjective Subjective Comments No acute events reported She feels that her arm strength has improved significantly and is now able to raise arms above her head. Also feels numbness in mid thoracic area is improving , but no change in LE weakness yet Active Medications Current Medications Medications (Trade) Dose Ordered Sig/Fredo Route Start Time Stop Time Status Last Admin (NS Flush) 2 ml UNSCH PRN FLUSH 03/16/16 23:00 (NS Flush) 2 ml BID FLUSH 03/17/16 09:00 03/22/16 11:36 (Tylenol) 650 mg Q4H PRN PO 03/16/16 23:00 (Zofran Inj) 4 mg Q6H PRN IVP 03/16/16 23:00 (Dulcolax Supp) 10 mg DAILY PRN [place] 03/16/16 23:00 03/22/16 16:44 (Senokot) 17.2 mg Q12H PRN PO 03/16/16 23:00 (Narcan Inj) 0.4 mg UNSCH PRN IV 03/16/16 23:00 (Levemir Inj) 50 units Q12HR SQ 03/17/16 09:00 03/22/16 10:09 (Nitrostat Sl) 0.4 mg Q5M PRN SL 03/16/16 23:00 (Morphine Inj) 2 mg Q3H PRN IV 03/16/16 23:30 03/18/16 00:41 (Morphine Inj) 4 mg Q3H PRN IV 03/16/16 23:30 03/17/16 05:07 (Zanaflex) 4 mg Q8HR PO 03/17/16 06:00 03/22/16 16:45 (Lipitor) 20 mg DAILY PO 03/17/16 09:00 03/22/16 10:07 (Protonix) 40 mg DAILY PO 03/17/16 09:00 03/22/16 10:08 (Tenormin) 50 mg Q12HR PO 03/17/16 09:00 03/22/16 10:07 (Prinivil) 40 mg DAILY PO 03/17/16 09:00 03/22/16 10:07 (Neurontin) 300 mg BID PO 03/17/16 09:00 03/22/16 11:27 (Epivir) 150 mg Q12HR PO 03/17/16 09:00 03/22/16 10:06 (Retrovir) 300 mg Q12HR PO 03/17/16 09:00 03/22/16 10:07 (Lioresal) 20 mg Q8HR PO 03/17/16 06:00 03/22/16 16:45 (Roxicodone) 5 mg Q4H PRN PO 03/17/16 09:15 03/22/16 10:06 (Milk Of Magnesia Liq) 30 ml DAILY PRN PO 03/17/16 10:00 (Pepcid) 20 mg Q12H PO 03/18/16 21:00 03/22/16 10:08 (Catapres) 0.1 mg Q6H PRN PO 03/19/16 13:15 (Norvasc) 10 mg DAILY PO 03/19/16 13:15 03/22/16 10:07 (Lyrica) 300 mg Q12HR PO 03/19/16 21:00 03/22/16 10:05 (D50w (Vial) Inj) 25 ml UNSCH PRN IV PUSH 03/19/16 21:15 (Glucagon Inj) 1 mg UNSCH PRN OTHER 03/19/16 21:15 (Ceftin) 500 mg Q12HR PO 03/21/16 13:45 03/31/16 13:44 03/22/16 10:08 (SoluMEDROL INJ) 100 mg Q6H IV 03/21/16 23:00 03/22/16 16:44 Allergies Allergies Coded Allergies No Known Allergies (Unverified03/16/16) Exam I&O / VS 03/21/16 03/21/16 03/22/16 15:00 23:00 07:00 Intake Total 840 ml 720 ml Balance 840 ml 720 ml Intake Oral 840 ml 720 ml # Voids 3 4 # Bowel Movements 3 2 Vital Signs Date Time Temp Pulse Resp B/P Pulse Ox O2 Delivery O2 Flow Rate FiO2 03/22/16 11:24 97.7 66 20 139/80 98 03/22/16 08:32 97.4 62 20 154/93 96 03/22/16 04:00 97.8 61 18 161/83 97 03/22/16 00:00 96.9 61 17 146/68 97 03/21/16 19:00 96.7 63 18 138/71 98 Exam Comments alert and oriented , speech normal CN 2-12 normal 5/5 Bilateral deltoid, biceps, triceps, interossei 4/5 bilateral iliopsoas, quadriceps, hamstring, tibialis anterior, 3+ bilateral patellar and ankle dtr with bilateral Babinski Objective Micro and Labs Date/Time Procedure Status Source Growth 03/21/16 09:57 Gram Stain - Final Complete Cerebral Spinal Fluid Lumbar Puncture 03/21/16 09:57 CSF Culture - Final Complete Cerebral Spinal Fluid Lumbar Puncture No growth. 03/21/16 09:57 Fungal Smear - Final Resulted Cerebral Spinal Fluid Lumbar Puncture NO FUNGAL ELEMENTS SEEN. 03/21/16 09:57 Fungal Culture Resulted Cerebral Spinal Fluid Lumbar Puncture Pending 03/21/16 09:57 Acid Fast Stain - Final Resulted Cerebral Spinal Fluid Lumbar Puncture NO ACID FAST BACILLI SEEN 03/21/16 09:57 Mycobacterial Culture Resulted Cerebral Spinal Fluid Lumbar Puncture Pending Frankie Torres PhD MD Mar 22, 2016 17:35
[2016-03-22 20:00] VITALS: BP 132/63; PULSE 65; RESP 17; TEMP 97.9; O2SAT 96
[2016-03-23] VITALS: BP 141/78; PULSE 66; RESP 17; TEMP 98.1; O2SAT 99
[2016-03-23 04:00] VITALS: BP 148/79; PULSE 59; RESP 17; TEMP 98.1; O2SAT 97
[2016-03-23] MEDS: BACLOFEN 20 MG TAB PO SCH ×3 (06:06→21:28)
[2016-03-23] MEDS: INSULIN NovoLIN REGULAR SUPPLEMENTAL SCALE SQ SCH ×4 (06:07→23:13)
[2016-03-23] MEDS: methylPREDNISolone SOD SUCC 125 MG/2 ML VIAL IV SCH ×4 (06:08→23:07)
[2016-03-23] MEDS: CEFUROXIME AXETIL 500 MG TAB PO SCH ×2 (07:39→21:28)
[2016-03-23] MEDS: PANTOPRAZOLE SOD 40 MG DELAYED RELEASE TAB PO SCH (07:40)
[2016-03-23] MEDS: ZIDOVUDINE 100 MG CAP PO SCH ×2 (07:40→21:28)
[2016-03-23] MEDS: PREGABALIN 100 MG CAP PO SCH ×2 (07:40→19:00)
[2016-03-23] MEDS: ATORVASTATIN 20 MG TAB PO SCH (07:41)
[2016-03-23] MEDS: SODIUM CHLORIDE 0.9% FLUSH 5 ML FLUSH FLUSH SCH ×2 (07:41→23:09)
[2016-03-23] MEDS: LISINOPRIL 20 MG TAB PO SCH (07:42)
[2016-03-23] MEDS: INSULIN DETEMIR 100 UNITS/ML VIAL SQ SCH ×2 (07:42→23:07)
[2016-03-23] MEDS: ATENOLOL 50 MG TAB PO SCH ×2 (07:42→21:27)
[2016-03-23] MEDS: FAMOTIDINE 20 MG TAB PO SCH ×2 (07:44→21:27)
[2016-03-23 08:00] VITALS: BP 152/71; PULSE 54; RESP 16; TEMP 97.2; O2SAT 94
[2016-03-23] MEDS: GABAPENTIN 300 MG CAP PO SCH (09:31)
[2016-03-23 12:00] VITALS: BP 142/72; PULSE 63; RESP 18; TEMP 96.8; O2SAT 97
[2016-03-23 16:00] VITALS: BP 117/58; PULSE 60; RESP 16; TEMP 96.8; O2SAT 97
[2016-03-23] MEDS ORDERED: SERTRALINE HCL 100 MG TAB PO ONE (17:00)
[2016-03-23 17:57] LABS: VDRL CSF NON-REACTIVE (())
--- NOTE | 2016-03-23 18:04 | HHI.PR ---
Subjective Remarks feeling better Objective Vital Signs Date Time Temp Pulse Resp B/P Pulse Ox O2 Delivery O2 Flow Rate FiO2 03/23/16 16:00 96.8 60 16 117/58 97 03/23/16 12:00 96.8 63 18 142/72 97 03/23/16 08:00 97.2 54 16 152/71 94 03/23/16 04:00 98.1 59 17 148/79 97 03/23/16 00:00 98.1 66 17 141/78 99 03/22/16 21:16 16 03/22/16 21:16 16 03/22/16 20:00 97.9 65 17 132/63 96 I/O 03/22/16 03/22/16 03/22/16 03/23/16 03/23/16 03/23/16 07:00 15:00 23:00 07:00 15:00 23:00 Intake Total 720 ml 960 ml 600 ml 1200 ml 960 ml Balance 720 ml 960 ml 600 ml 1200 ml 960 ml Intake Oral 720 ml 960 ml 600 ml 1200 ml 960 ml # Voids 4 2 3 4 4 # Bowel Movements 2 2 1 Result Diagram: 03/20/16 1855 03/21/16 0043 Objective Remarks GENERAL: SKIN: Warm and dry. HEAD: Atraumatic. Normocephalic. EYES: Pupils equal and round. No scleral icterus. No injection or drainage. ENT: No nasal bleeding or discharge. Mucous membranes pink and moist. NECK: Trachea midline. No JVD. CARDIOVASCULAR: Regular rate and rhythm. RESPIRATORY: No accessory muscle use. Clear to auscultation. Breath sounds equal bilaterally. GASTROINTESTINAL: Abdomen soft, non-tender, nondistended. Hepatic and splenic margins not palpable.obese MUSCULOSKELETAL: Extremities without clubbing, cyanosis, or edema. No obvious deformities. NEUROLOGICAL: Awake and alert. No obvious cranial nerve deficits. Motor grossly within normal limits. diminished strength in lower extremis Normal speech. PSYCHIATRIC: depressed has been aggressive Medications and IVs Current Medications Medications (Trade) Dose Ordered Sig/Fredo Route PRN Reason Start Time Stop Time Status Last Admin Dose Admin IV Flush (NS Flush) 2 ml UNSCH PRN FLUSH FLUSH AFTER USING IV ACCESS 03/16/16 23:00 IV Flush (NS Flush) 2 ml BID FLUSH 03/17/16 09:00 03/23/16 07:41 Acetaminophen (Tylenol) 650 mg Q4H PRN PO TEMP > 100.4 03/16/16 23:00 Ondansetron HCl (Zofran Inj) 4 mg Q6H PRN IVP NAUSEA OR VOMITING 03/16/16 23:00 Bisacodyl (Dulcolax Supp) 10 mg DAILY PRN [place] CONSTIPATION 03/16/16 23:00 03/22/16 16:44 Sennosides (Senokot) 17.2 mg Q12H PRN PO CONSTIPATION 03/16/16 23:00 Naloxone HCl (Narcan Inj) 0.4 mg UNSCH PRN IV SEE LABEL COMMENTS 03/16/16 23:00 Insulin Detemir (Levemir Inj) 50 units Q12HR SQ 03/17/16 09:00 03/23/16 07:42 Nitroglycerin (Nitrostat Sl) 0.4 mg Q5M PRN SL X 3 doses for chest pain 03/16/16 23:00 Morphine Sulfate (Morphine Inj) 2 mg Q3H PRN IV Pain 3-5; if unable to take PO 03/16/16 23:30 03/18/16 00:41 Morphine Sulfate (Morphine Inj) 4 mg Q3H PRN IV Pain 6-10;if unable to take PO 03/16/16 23:30 03/17/16 05:07 Atorvastatin Calcium (Lipitor) 20 mg DAILY PO 03/17/16 09:00 03/23/16 07:41 Pantoprazole Sodium (Protonix) 40 mg DAILY PO 03/17/16 09:00 03/23/16 07:40 Atenolol (Tenormin) 50 mg Q12HR PO 03/17/16 09:00 03/23/16 07:42 Lisinopril (Prinivil) 40 mg DAILY PO 03/17/16 09:00 03/23/16 07:42 Lamivudine (Epivir) 150 mg Q12HR PO 03/17/16 09:00 03/23/16 07:39 Zidovudine (Retrovir) 300 mg Q12HR PO 03/17/16 09:00 03/23/16 07:40 Baclofen (Lioresal) 20 mg Q8HR PO 03/17/16 06:00 03/23/16 12:56 Oxycodone HCl (Roxicodone) 5 mg Q4H PRN PO PAIN SCALE 6 TO 10 03/17/16 09:15 03/23/16 13:30 Magnesium Hydroxide (Milk Of Magnsam Liq) 30 ml DAILY PRN PO CONSTIPATION 03/17/16 10:00 Famotidine (Pepcid) 20 mg Q12H PO 03/18/16 21:00 03/23/16 07:44 Clonidine (Catapres) 0.1 mg Q6H PRN PO SYS BP GREATER THAN 160 MMHG 03/19/16 13:15 Amlodipine Besylate (Norvasc) 10 mg DAILY PO 03/19/16 13:15 03/23/16 07:42 Dextrose (D50w (Vial) Inj) 25 ml UNSCH PRN IV PUSH HYPOGLYCEMIA-SEE COMMENTS 03/19/16 21:15 Glucagon (Glucagon Inj) 1 mg UNSCH PRN OTHER HYPOGLYCEMIA-SEE COMMENTS 03/19/16 21:15 Cefuroxime Axetil (Ceftin) 500 mg Q12HR PO 03/21/16 13:45 03/31/16 13:44 03/23/16 07:39 Methylprednisolone Sodium Succinate (SoluMEDROL INJ) 60 mg Q6H IV 03/22/16 23:00 03/23/16 17:52 Sertraline HCl (Zoloft) 100 mg DAILY PO 03/24/16 09:00 Pregabalin (Lyrica) 300 mg Q8HR PO 03/23/16 22:00 Assessment and Plan Assessment and Plan add zoloft for depression dc neurontin and increase lyrica dc zanaflex will fu in am Code Status: Julio C Wallace DO Mar 23, 2016 18:04
[2016-03-23 20:00] VITALS: BP 117/61; PULSE 60; RESP 18; TEMP 97.7; O2SAT 95
[2016-03-24] VITALS: BP 133/77; PULSE 71; RESP 18; TEMP 97.2; O2SAT 95
[2016-03-24] MEDS: PREGABALIN 100 MG CAP PO SCH ×4 (03:15→23:48)
[2016-03-24 04:00] VITALS: BP 160/83; PULSE 64; RESP 18; TEMP 97.6; O2SAT 96
[2016-03-24] MEDS: BACLOFEN 20 MG TAB PO SCH (05:55)
[2016-03-24] MEDS: methylPREDNISolone SOD SUCC 125 MG/2 ML VIAL IV SCH ×4 (05:55→23:48)
[2016-03-24] MEDS: INSULIN NovoLIN REGULAR SUPPLEMENTAL SCALE SQ SCH ×4 (05:56→21:30)
[2016-03-24 08:00] VITALS: BP 142/71; PULSE 63; RESP 20; TEMP 97.9; O2SAT 97
[2016-03-24] MEDS: SODIUM CHLORIDE 0.9% FLUSH 5 ML FLUSH FLUSH SCH ×2 (09:00→21:32)
[2016-03-24] MEDS: ATORVASTATIN 20 MG TAB PO SCH (10:03)
[2016-03-24] MEDS: PANTOPRAZOLE SOD 40 MG DELAYED RELEASE TAB PO SCH (10:03)
[2016-03-24] MEDS: ATENOLOL 50 MG TAB PO SCH ×2 (10:03→21:32)
[2016-03-24] MEDS: SERTRALINE HCL 100 MG TAB PO SCH (10:04)
[2016-03-24] MEDS: FAMOTIDINE 20 MG TAB PO SCH ×2 (10:05→21:32)
[2016-03-24] MEDS: INSULIN DETEMIR 100 UNITS/ML VIAL SQ SCH ×2 (10:06→21:29)
[2016-03-24] MEDS: LISINOPRIL 20 MG TAB PO SCH (10:06)
[2016-03-24 10:34] LABS: CSF CRYPTOCOCCUS AG CONF ND (NOT DETECTD)
[2016-03-24 12:00] VITALS: BP 151/73; PULSE 65; RESP 20; TEMP 96.8; O2SAT 98
--- NOTE | 2016-03-24 13:30 | HHI.PR ---
Subjective Remarks feeling better concerned about her viral meds she states she took these in the past and they made her weak Objective Vital Signs Date Time Temp Pulse Resp B/P Pulse Ox O2 Delivery O2 Flow Rate FiO2 03/24/16 08:00 97.9 63 20 142/71 97 03/24/16 04:41 19 03/24/16 04:41 19 03/24/16 04:00 97.6 64 18 160/83 96 03/24/16 00:00 97.2 71 18 133/77 95 03/23/16 20:00 97.7 60 18 117/61 95 03/23/16 16:00 96.8 60 16 117/58 97 I/O 03/23/16 03/23/16 03/23/16 03/24/16 03/24/16 03/24/16 07:00 15:00 23:00 07:00 15:00 23:00 Intake Total 1200 ml 960 ml 960 ml Balance 1200 ml 960 ml 960 ml Intake Oral 1200 ml 960 ml 960 ml # Voids 4 4 10 # Bowel Movements 1 1 Result Diagram: 03/20/16 1855 03/21/16 0043 Other Results wbc up on steroids Objective Remarks GENERAL: SKIN: Warm and dry. HEAD: Atraumatic. Normocephalic. EYES: Pupils equal and round. No scleral icterus. No injection or drainage. ENT: No nasal bleeding or discharge. Mucous membranes pink and moist. NECK: Trachea midline. No JVD. CARDIOVASCULAR: Regular rate and rhythm. RESPIRATORY: No accessory muscle use. Clear to auscultation. Breath sounds equal bilaterally. GASTROINTESTINAL: Abdomen soft, non-tender, nondistended. Hepatic and splenic margins not palpable.obese MUSCULOSKELETAL: Extremities without clubbing, cyanosis, or edema. No obvious deformities. NEUROLOGICAL: Awake and alert. No obvious cranial nerve deficits. Motor. diminished strength in lower extremis Normal speech. PSYCHIATRIC: depressed has been aggressive Assessment and Plan Assessment and Plan will further reduce meds today decrease solumedrol from 60mg qid to 40 mg qid will dc antivirals as he refuses them resume feso4 and dc ceftin as uti should be clear by now Discharge Planning tto benjamin once insurance clears Julio C Zee DO Mar 24, 2016 13:30
[2016-03-24 16:00] VITALS: BP 127/63; PULSE 68; RESP 20; TEMP 98.9; O2SAT 98
[2016-03-24 20:00] VITALS: BP_SYST 117; BP_SYST 120; BP_DIAS 60; BP_DIAS 73; PULSE 65; PULSE 67; RESP 18; TEMP 97.5; TEMP 97.9; O2SAT 96; O2SAT 97
[2016-03-24] MEDS: FERROUS SULFATE 325 MG (65 MG ELEMENTAL IRON) TAB PO SCH (21:32)
[2016-03-25] VITALS: BP 120/73; PULSE 65; RESP 18; TEMP 97.5; O2SAT 96
[2016-03-25 04:00] VITALS: BP 131/68; PULSE 65; RESP 17; TEMP 97.1; O2SAT 97
[2016-03-25] MEDS: INSULIN NovoLIN REGULAR SUPPLEMENTAL SCALE SQ SCH ×4 (06:19→20:59)
[2016-03-25] MEDS: methylPREDNISolone SOD SUCC 125 MG/2 ML VIAL IV SCH (06:20)
[2016-03-25 08:00] VITALS: BP 147/86; PULSE 57; RESP 18; TEMP 96.6; O2SAT 97
[2016-03-25] MEDS: SODIUM CHLORIDE 0.9% FLUSH 5 ML FLUSH FLUSH SCH ×2 (09:00→20:57)
[2016-03-25] MEDS ORDERED: INSULIN DETEMIR 100 UNITS/ML VIAL SQ SCH (09:00)
[2016-03-25] MEDS: LISINOPRIL 20 MG TAB PO SCH (09:05)
[2016-03-25] MEDS: CHOLECALCIFEROL (VIT D3) 1000 UNIT TAB PO SCH (09:05)
[2016-03-25] MEDS: FERROUS SULFATE 325 MG (65 MG ELEMENTAL IRON) TAB PO SCH ×2 (09:06→20:57)
[2016-03-25] MEDS: ATENOLOL 50 MG TAB PO SCH ×2 (09:06→20:58)
[2016-03-25] MEDS: PANTOPRAZOLE SOD 40 MG DELAYED RELEASE TAB PO SCH (09:06)
[2016-03-25] MEDS: ATORVASTATIN 20 MG TAB PO SCH (09:06)
[2016-03-25] MEDS: FAMOTIDINE 20 MG TAB PO SCH ×2 (09:06→20:58)
[2016-03-25] MEDS: SERTRALINE HCL 100 MG TAB PO SCH (09:06)
[2016-03-25 11:04] LABS: AUTOMATED NEUTROPHIL # 15.6 TH/MM3 (1.8-7.7); BASOPHIL % 0.1 % (0.0-2.0); HEMATOCRIT 39.7 % (35.0-46.0); HEMO FLAGS DIFF FINAL; LYMPHOCYTE # 1.1 TH/MM3 (1.0-4.8); MEAN CELL VOLUME 93.7 FL (80.0-100.0); MEAN CORPUSCULAR HEMOGLOBIN 31.3 PG (27.0-34.0); MEAN CORPUSCULAR HGB CONC 33.4 % (32.0-36.0); NEUT % 87.9 % (16.0-70.0); PLATELET COUNT 268 TH/MM3 (150-450); RED BLOOD COUNT 4.24 MIL/MM3 (4.00-5.30); RED CELL DISTRIBUTION WIDTH 19.3 % (11.6-17.2); WHITE BLOOD COUNT 17.7 TH/MM3 (4.0-11.0)
--- NOTE | 2016-03-25 11:10 | HHI.PR ---
Review/Management Diagnosis transverse myelitis Plan reduce dose of solumedrol due to hyperglycemia and continue another 3-4 days follow up confirmatory test for HTLV 1/2 Diagnosis/Plan: Subjective Subjective Comments No acute events reported epivir and retrovir stopped and she feel better since stopping able to move LE more. Active Medications Current Medications Medications (Trade) Dose Ordered Sig/Fredo Route Start Time Stop Time Status Last Admin (NS Flush) 2 ml UNSCH PRN FLUSH 03/16/16 23:00 (NS Flush) 2 ml BID FLUSH 03/17/16 09:00 03/25/16 09:00 (Tylenol) 650 mg Q4H PRN PO 03/16/16 23:00 (Zofran Inj) 4 mg Q6H PRN IVP 03/16/16 23:00 (Dulcolax Supp) 10 mg DAILY PRN MT 03/16/16 23:00 03/22/16 16:44 (Senokot) 17.2 mg Q12H PRN PO 03/16/16 23:00 (Narcan Inj) 0.4 mg UNSCH PRN IV 03/16/16 23:00 (Nitrostat Sl) 0.4 mg Q5M PRN SL 03/16/16 23:00 (Morphine Inj) 2 mg Q3H PRN IV 03/16/16 23:30 03/18/16 00:41 (Morphine Inj) 4 mg Q3H PRN IV 03/16/16 23:30 03/17/16 05:07 (Lipitor) 20 mg DAILY PO 03/17/16 09:00 03/25/16 09:06 (Protonix) 40 mg DAILY PO 03/17/16 09:00 03/25/16 09:06 (Tenormin) 50 mg Q12HR PO 03/17/16 09:00 03/25/16 09:06 (Prinivil) 40 mg DAILY PO 03/17/16 09:00 03/25/16 09:05 (Roxicodone) 5 mg Q4H PRN PO 03/17/16 09:15 03/25/16 06:31 (Milk Of Magnesia Liq) 30 ml DAILY PRN PO 03/17/16 10:00 (Pepcid) 20 mg Q12H PO 03/18/16 21:00 03/25/16 09:06 (Catapres) 0.1 mg Q6H PRN PO 03/19/16 13:15 (Norvasc) 10 mg DAILY PO 03/19/16 13:15 03/25/16 09:06 (D50w (Vial) Inj) 25 ml UNSCH PRN IV PUSH 03/19/16 21:15 (Glucagon Inj) 1 mg UNSCH PRN OTHER 03/19/16 21:15 (Zoloft) 100 mg DAILY PO 03/24/16 09:00 03/25/16 09:06 (Lyrica) 300 mg Q8H PO 03/23/16 19:00 03/24/16 23:48 (Levemir Inj) 60 units DAILY SQ 03/25/16 09:00 03/25/16 09:06 (Levemir Inj) 50 units HS SQ 03/24/16 21:00 03/24/16 21:29 (Vitamin D3) 2,000 units DAILY PO 03/25/16 09:00 03/25/16 09:05 (SoluMEDROL INJ) 40 mg Q6H IV 03/24/16 17:00 03/25/16 06:20 (Ferrous Sulfate) 325 mg BID PO 03/24/16 21:00 03/25/16 09:06 Allergies Allergies Coded Allergies No Known Allergies (Unverified03/16/16) Exam I&O / VS 03/24/16 03/24/16 03/25/16 15:00 23:00 07:00 Intake Total 720 ml 480 ml Balance 720 ml 480 ml Intake Oral 720 ml 480 ml # Voids 2 4 Vital Signs Date Time Temp Pulse Resp B/P Pulse Ox O2 Delivery O2 Flow Rate FiO2 03/25/16 08:00 96.6 57 18 147/86 97 03/25/16 04:00 97.1 65 17 131/68 97 03/25/16 01:31 16 03/25/16 01:30 18 03/25/16 00:00 97.5 65 18 120/73 96 03/24/16 20:00 97.9 67 18 117/60 97 03/24/16 16:00 98.9 68 20 127/63 98 03/24/16 12:00 96.8 65 20 151/73 98 Exam Comments alert and oriented , speech normal CN 2-12 normal 5/5 Bilateral deltoid, biceps, triceps, interossei 4/5 bilateral iliopsoas, quadriceps, hamstring, tibialis anterior, 3+ bilateral patellar and ankle dtr with bilateral Babinski Objective Micro and Labs Date/Time Procedure Status Source Growth 03/21/16 09:57 Gram Stain - Final Complete Cerebral Spinal Fluid Lumbar Puncture 03/21/16 09:57 CSF Culture - Final Complete Cerebral Spinal Fluid Lumbar Puncture NO GROWTH IN 72 HOURS 03/21/16 09:57 Fungal Smear - Final Resulted Cerebral Spinal Fluid Lumbar Puncture NO FUNGAL ELEMENTS SEEN. 03/21/16 09:57 Fungal Culture Resulted Cerebral Spinal Fluid Lumbar Puncture Pending 03/21/16 09:57 Acid Fast Stain - Final Resulted Cerebral Spinal Fluid Lumbar Puncture NO ACID FAST BACILLI SEEN 03/21/16 09:57 Mycobacterial Culture Resulted Cerebral Spinal Fluid Lumbar Puncture Pending Frankie Torres PhD Mar 25, 2016 11:10
[2016-03-25 11:38] LABS: WESTERGREN SEDIMENTATION RATE 12 mm/hr (0-20)
[2016-03-25] MEDS: PREGABALIN 100 MG CAP PO SCH ×2 (12:17→18:11)
[2016-03-25 12:45] VITALS: BP 127/78; PULSE 70; RESP 20; TEMP 97; O2SAT 94
[2016-03-25] MEDS: METHOCARBAMOL 500 MG TAB PO PRN (14:08)
[2016-03-25 17:20] VITALS: BP 156/82; PULSE 102; RESP 20; TEMP 99.5; O2SAT 96
[2016-03-25 20:00] VITALS: BP 107/57; PULSE 65; RESP 16; TEMP 97.9; O2SAT 96
[2016-03-25] MEDS: INSULIN DETEMIR 100 UNITS/ML VIAL SQ SCH (20:58)
[2016-03-25] MEDS: methylPREDNISolone SOD SUCC 40 MG/1 ML VIAL IV SCH (20:58)
[2016-03-26] VITALS (7 sets, daily range): BP systolic 92–130; BP diastolic 54–64; PULSE 62–88; RESP 16–20; TEMP 97.3–97.8; O2SAT 95–97
[2016-03-26] MEDS: PREGABALIN 100 MG CAP PO SCH ×3 (03:27→18:05)
[2016-03-26] MEDS: METHOCARBAMOL 500 MG TAB PO PRN (05:53)
[2016-03-26] MEDS: INSULIN NovoLIN REGULAR SUPPLEMENTAL SCALE SQ SCH ×4 (05:54→23:32)
[2016-03-26 06:58] LABS: AUTOMATED NEUTROPHIL # 18.3 TH/MM3 (1.8-7.7); BASOPHIL % 0.1 % (0.0-2.0); HEMATOCRIT 39.1 % (35.0-46.0); HEMO FLAGS DIFF FINAL; LYMPH % 6.4 % (9.0-44.0); LYMPHOCYTE # 1.3 TH/MM3 (1.0-4.8); MEAN CELL VOLUME 93.1 FL (80.0-100.0); MEAN CORPUSCULAR HEMOGLOBIN 30.9 PG (27.0-34.0); MEAN CORPUSCULAR HGB CONC 33.2 % (32.0-36.0); MONO % 5.8 % (0.0-8.0); NEUT % 87.7 % (16.0-70.0); PLATELET COUNT 261 TH/MM3 (150-450); RED BLOOD COUNT 4.19 MIL/MM3 (4.00-5.30); RED CELL DISTRIBUTION WIDTH 20.2 % (11.6-17.2); WHITE BLOOD COUNT 20.9 TH/MM3 (4.0-11.0)
[2016-03-26 07:45] LABS: BICARBONATE 28.2 MEQ/L (21.0-32.0); FREE T3 1.16 PG/ML (2.18-3.98); POTASSIUM 4.2 MEQ/L (3.5-5.1)
[2016-03-26] MEDS: methylPREDNISolone SOD SUCC 40 MG/1 ML VIAL IV SCH (08:00)
[2016-03-26] MEDS: SODIUM CHLORIDE 0.9% FLUSH 5 ML FLUSH FLUSH SCH ×2 (09:00→20:31)
[2016-03-26] MEDS: ATORVASTATIN 20 MG TAB PO SCH (09:55)
[2016-03-26] MEDS: PANTOPRAZOLE SOD 40 MG DELAYED RELEASE TAB PO SCH (09:55)
[2016-03-26] MEDS: SERTRALINE HCL 100 MG TAB PO SCH (09:55)
[2016-03-26] MEDS: FAMOTIDINE 20 MG TAB PO SCH ×2 (09:55→20:31)
[2016-03-26] MEDS: CHOLECALCIFEROL (VIT D3) 1000 UNIT TAB PO SCH (09:55)
[2016-03-26] MEDS: LISINOPRIL 20 MG TAB PO SCH (09:55)
[2016-03-26] MEDS: FERROUS SULFATE 325 MG (65 MG ELEMENTAL IRON) TAB PO SCH ×2 (09:55→20:31)
[2016-03-26] MEDS: INSULIN DETEMIR 100 UNITS/ML VIAL SQ SCH (09:56)
[2016-03-26] MEDS: ATENOLOL 50 MG TAB PO SCH ×2 (09:56→21:00)
[2016-03-26 12:53] LABS: BLOOD, URINE NEG (NEG); GLUCOSE,URINE 1000 mg/dL (NEG); KETONE, URINE NEG (NEG); NITRITE,URINE NEG (NEG); SQUAMOUS EPITHELIAL CELL URINE <1 /hpf (0-5); URINE COLOR LIGHT-YELLOW (YELLW/STRAW)
[2016-03-26 12:55] LABS: COMMENT (UR) CATH-CULT NOT IND; CULTURE IF INDICATED CATH CULTURE NOT IND
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
--- NOTE | 2016-03-26 15:29 | HHI.PR ---
Subjective Remarks Late entry foe 03/25/16 patient seen this afternoon no new co ACTUSALLY FEELING A BIT BETTER AND STROONGER SINCE MEDICATIONS HAVE BEEN REDUCED OBJECTIVE VSS AFEBRILE PE HEENT UNREMARKABLE HRRR WITHOUT MURMUR LUNGS CLEAR NO RA;ES OR RHONCHI ABD OBESE SOFT EXTREMITIES CONTINUES TO SLOWLY IMPROVE IN STRENGTH AND ROM Assessment and Plan Problem List: (1) UTI (urinary tract infection) Status: Acute (2) Insulin dependent diabetes mellitus Status: Chronic (3) Agitation states as acute reaction to exceptional (gross) stress Status: Acute (4) Adjustment disorder with disturbance of conduct Status: Acute Assessment and Plan IMPROVED WITH MED REDUCTION FOLLOW SUGARS CLOSELY ADJUST INSULINE NEEDED Discharge Planning [facility] Problem Qualifiers (1) UTI (urinary tract infection): Qualified Code: N30.00 - Acute cystitis without hematuria Julio C Zee DO Mar 26, 2016 15:29
--- NOTE | 2016-03-26 18:40 | HHI.PR ---
Subjective Remarks patient seen this afternoon no new co ACTUALLY STOOD TODAY AND TOOK ONE STEP Objective Vital Signs Date Time Temp Pulse Resp B/P Pulse Ox O2 Delivery O2 Flow Rate FiO2 03/26/16 16:00 97.5 70 20 103/60 97 03/26/16 12:00 97.3 88 20 100/63 96 03/26/16 08:00 97.4 63 16 119/57 97 03/26/16 04:27 16 03/26/16 04:27 16 03/26/16 04:00 97.4 62 16 130/64 97 03/26/16 00:00 97.3 64 16 123/64 95 03/25/16 20:00 97.9 65 16 107/57 96 I/O 03/25/16 03/25/16 03/25/16 03/26/16 03/26/16 03/26/16 07:00 15:00 23:00 07:00 15:00 23:00 Intake Total 480 ml 480 ml 720 ml 480 ml 480 ml 960 ml Balance 480 ml 480 ml 720 ml 480 ml 480 ml 960 ml Intake Oral 480 ml 480 ml 720 ml 480 ml 480 ml 960 ml # Voids 4 4 1 5 2 2 Result Diagram: 03/26/1661403/26/1615 Objective Remarks GENERAL: SKIN: Warm and dry. HEAD: Atraumatic. Normocephalic. EYES: Pupils equal and round. No scleral icterus. No injection or drainage. ENT: No nasal bleeding or discharge. Mucous membranes pink and moist. NECK: Trachea midline. No JVD. CARDIOVASCULAR: Regular rate and rhythm. RESPIRATORY: No accessory muscle use. Clear to auscultation. Breath sounds equal bilaterally. GASTROINTESTINAL: Abdomen soft, non-tender, nondistended. Hepatic and splenic margins not palpable.obese MUSCULOSKELETAL: Extremities without clubbing, cyanosis, or edema. No obvious deformities. NEUROLOGICAL: Awake and alert. No obvious cranial nerve deficits. Motor. diminished strength in lower extremis Normal speech. PSYCHIATRIC: depressed has been aggressive Medications and IVs Current Medications Medications (Trade) Dose Ordered Sig/Fredo Route PRN Reason Start Time Stop Time Status Last Admin Dose Admin IV Flush (NS Flush) 2 ml UNSCH PRN FLUSH FLUSH AFTER USING IV ACCESS 03/16/16 23:00 IV Flush (NS Flush) 2 ml BID FLUSH 03/17/16 09:00 03/26/16 09:00 Acetaminophen (Tylenol) 650 mg Q4H PRN PO TEMP > 100.4 03/16/16 23:00 Ondansetron HCl (Zofran Inj) 4 mg Q6H PRN IVP NAUSEA OR VOMITING 03/16/16 23:00 Bisacodyl (Dulcolax Supp) 10 mg DAILY PRN AL CONSTIPATION 03/16/16 23:00 03/22/16 16:44 Sennosides (Senokot) 17.2 mg Q12H PRN PO CONSTIPATION 03/16/16 23:00 Naloxone HCl (Narcan Inj) 0.4 mg UNSCH PRN IV SEE LABEL COMMENTS 03/16/16 23:00 Nitroglycerin (Nitrostat Sl) 0.4 mg Q5M PRN SL X 3 doses for chest pain 03/16/16 23:00 Morphine Sulfate (Morphine Inj) 2 mg Q3H PRN IV Pain 3-5; if unable to take PO 03/16/16 23:30 03/18/16 00:41 Morphine Sulfate (Morphine Inj) 4 mg Q3H PRN IV Pain 6-10;if unable to take PO 03/16/16 23:30 03/17/16 05:07 Atorvastatin Calcium (Lipitor) 20 mg DAILY PO 03/17/16 09:00 03/26/16 09:55 Pantoprazole Sodium (Protonix) 40 mg DAILY PO 03/17/16 09:00 03/26/16 09:55 Atenolol (Tenormin) 50 mg Q12HR PO 03/17/16 09:00 03/26/16 09:56 Lisinopril (Prinivil) 40 mg DAILY PO 03/17/16 09:00 03/26/16 09:55 Oxycodone HCl (Roxicodone) 5 mg Q4H PRN PO PAIN SCALE 6 TO 10 03/17/16 09:15 03/26/16 12:29 Magnesium Hydroxide (Milk Of Magnesia Liq) 30 ml DAILY PRN PO CONSTIPATION 03/17/16 10:00 Famotidine (Pepcid) 20 mg Q12H PO 03/18/16 21:00 03/26/16 09:55 Clonidine (Catapres) 0.1 mg Q6H PRN PO SYS BP GREATER THAN 160 MMHG 03/19/16 13:15 Amlodipine Besylate (Norvasc) 10 mg DAILY PO 03/19/16 13:15 03/26/16 09:56 Dextrose (D50w (Vial) Inj) 25 ml UNSCH PRN IV PUSH HYPOGLYCEMIA-SEE COMMENTS 03/19/16 21:15 Glucagon (Glucagon Inj) 1 mg UNSCH PRN OTHER HYPOGLYCEMIA-SEE COMMENTS 03/19/16 21:15 Sertraline HCl (Zoloft) 100 mg DAILY PO 03/24/16 09:00 03/26/16 09:55 Pregabalin (Lyrica) 300 mg Q8H PO 03/23/16 19:00 03/26/16 18:05 Cholecalciferol (Vitamin D3) 2,000 units DAILY PO 03/25/16 09:00 03/26/16 09:55 Ferrous Sulfate (Ferrous Sulfate) 325 mg BID PO 03/24/16 21:00 03/26/16 09:55 Methocarbamol (Robaxin) 500 mg Q8HR PRN PO muscle spasm 03/25/16 11:15 03/26/16 05:53 Insulin Detemir (Levemir Inj) 60 units HS SQ 03/26/16 21:00 Insulin Detemir (Levemir Inj) 70 units DAILY SQ 03/26/16 09:00 03/26/16 09:56 Prednisone (Deltasone) 20 mg BID PO 03/26/16 21:00 UNV Assessment and Plan Problem List: (1) UTI (urinary tract infection) Status: Acute (2) Insulin dependent diabetes mellitus Status: Chronic (3) Agitation states as acute reaction to exceptional (gross) stress Status: Acute (4) Adjustment disorder with disturbance of conduct Status: Acute Assessment and Plan SUGARS HAVE BEEN OH [facility] SOLUM[facility] PLACE ON PO PREDNISONE ADD PP INSULINE AND FU AM AWAIT [place] Problem Qualifiers (1) UTI (urinary tract infection): Qualified Code: N30.00 - Acute cystitis without hematuria Julio C Zee DO Mar 26, 2016 18:40
[2016-03-26] MEDS: predniSONE 20 MG TAB PO SCH (20:31)
[2016-03-26] MEDS: INSULIN ASPART 1,000 UNITS/10 ML VIAL SQ SCH ×2 (20:42→23:08)
[2016-03-26] MEDS ORDERED: INSULIN DETEMIR 100 UNITS/ML VIAL SQ SCH (21:00)
[2016-03-26] MEDS: BISACODYL 10 MG SUPP PR PRN (23:08)
[2016-03-27] VITALS: BP 107/58; PULSE 76; RESP 16; TEMP 97.8; O2SAT 95
[2016-03-27 04:00] VITALS: BP 110/58; PULSE 70; RESP 16; TEMP 98.6; O2SAT 97
[2016-03-27] MEDS: PREGABALIN 100 MG CAP PO SCH ×2 (05:15→12:19)
[2016-03-27] MEDS: INSULIN NovoLIN REGULAR SUPPLEMENTAL SCALE SQ SCH ×3 (05:54→16:34)
[2016-03-27 08:00] VITALS: BP 100/61; PULSE 78; RESP 16; TEMP 97.5; O2SAT 98
[2016-03-27] MEDS: INSULIN DETEMIR 100 UNITS/ML VIAL SQ SCH (09:00)
[2016-03-27] MEDS: LISINOPRIL 20 MG TAB PO SCH (09:00)
[2016-03-27] MEDS: ATENOLOL 50 MG TAB PO SCH (09:00)
[2016-03-27] MEDS: SODIUM CHLORIDE 0.9% FLUSH 5 ML FLUSH FLUSH SCH (09:00)
[2016-03-27] MEDS: ATORVASTATIN 20 MG TAB PO SCH (09:19)
[2016-03-27] MEDS: SERTRALINE HCL 100 MG TAB PO SCH (09:20)
[2016-03-27] MEDS: CHOLECALCIFEROL (VIT D3) 1000 UNIT TAB PO SCH (09:20)
[2016-03-27] MEDS: predniSONE 20 MG TAB PO SCH (09:20)
[2016-03-27] MEDS: FAMOTIDINE 20 MG TAB PO SCH (09:20)
[2016-03-27] MEDS: PANTOPRAZOLE SOD 40 MG DELAYED RELEASE TAB PO SCH (09:21)
[2016-03-27] MEDS: FERROUS SULFATE 325 MG (65 MG ELEMENTAL IRON) TAB PO SCH (09:21)
[2016-03-27] MEDS: INSULIN ASPART 1,000 UNITS/10 ML VIAL SQ SCH ×3 (09:21→16:33)
[2016-03-27 12:00] VITALS: BP 120/67; PULSE 82; RESP 18; TEMP 98.4; O2SAT 99
[2016-03-27 16:00] VITALS: BP 118/59; PULSE 84; RESP 16; TEMP 97.8; O2SAT 97
[2016-03-27] MEDS ORDERED: NOVOLOGP2 SQ (17:09)
[2016-03-27] MEDS ORDERED: PRED20 PO (17:09)
[2016-03-27] MEDS ORDERED: AMLO10 PO (17:09)
[2016-03-27] MEDS ORDERED: METH500T3 PO (17:09)
[2016-03-27] MEDS ORDERED: ZOLO100T PO (17:09)
[2016-03-27] MEDS ORDERED: BISA10R PR (17:09)
[2016-03-27] MEDS ORDERED: LIPI20TA PO (17:09)
[2016-03-27] MEDS ORDERED: ACET325T PO (17:09)
[2016-03-27] MEDS ORDERED: NOVORP2 SQ (17:09)
[2016-03-27] MEDS ORDERED: LEVEMIR SQ (17:09)
[2016-03-27] MEDS ORDERED: SENN8.6T15 PO (17:09)
[2016-03-27] MEDS ORDERED: PANT40TA3 PO (17:09)
[2016-03-27] MEDS ORDERED: ATEN50TA PO (17:09)
[2016-03-27] MEDS ORDERED: VITA100018 PO (17:09)
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
[2016-03-27] MEDS: METHOCARBAMOL 500 MG TAB PO PRN (17:46)
--- NOTE | 2016-03-27 18:37 | HHI.PR ---
Review/Management Diagnosis transverse myelitis Plan slowly taper prednisone over one week baclofen 10 mg bid agree with transfer to [facility] Diagnosis/Plan: Subjective Subjective Comments No acute events reported Off solumedrol and on po prednisone Active Medications Current Medications Medications (Trade) Dose Ordered Sig/Fredo Route Start Time Stop Time Status Last Admin (NS Flush) 2 ml UNSCH PRN FLUSH 03/16/16 23:00 (NS Flush) 2 ml BID FLUSH 03/17/16 09:00 03/27/16 09:00 (Tylenol) 650 mg Q4H PRN PO 03/16/16 23:00 (Zofran Inj) 4 mg Q6H PRN IVP 03/16/16 23:00 (Dulcolax Supp) 10 mg DAILY PRN WI 03/16/16 23:00 03/26/16 23:08 (Senokot) 17.2 mg Q12H PRN PO 03/16/16 23:00 (Narcan Inj) 0.4 mg UNSCH PRN IV 03/16/16 23:00 (Nitrostat Sl) 0.4 mg Q5M PRN SL 03/16/16 23:00 (Morphine Inj) 2 mg Q3H PRN IV 03/16/16 23:30 03/18/16 00:41 (Morphine Inj) 4 mg Q3H PRN IV 03/16/16 23:30 03/17/16 05:07 (Lipitor) 20 mg DAILY PO 03/17/16 09:00 03/27/16 09:19 (Protonix) 40 mg DAILY PO 03/17/16 09:00 03/27/16 09:21 (Tenormin) 50 mg Q12HR PO 03/17/16 09:00 03/26/16 09:56 (Prinivil) 40 mg DAILY PO 03/17/16 09:00 03/26/16 09:55 (Roxicodone) 5 mg Q4H PRN PO 03/17/16 09:15 03/27/16 16:02 (Milk Of Magnesia Liq) 30 ml DAILY PRN PO 03/17/16 10:00 (Pepcid) 20 mg Q12H PO 03/18/16 21:00 03/27/16 09:20 (Catapres) 0.1 mg Q6H PRN PO 03/19/16 13:15 (Norvasc) 10 mg DAILY PO 03/19/16 13:15 03/26/16 09:56 (D50w (Vial) Inj) 25 ml UNSCH PRN IV PUSH 03/19/16 21:15 (Glucagon Inj) 1 mg UNSCH PRN OTHER 03/19/16 21:15 (Zoloft) 100 mg DAILY PO 03/24/16 09:00 03/27/16 09:20 (Lyrica) 300 mg Q8H PO 03/23/16 19:00 03/27/16 12:19 (Vitamin D3) 2,000 units DAILY PO 03/25/16 09:00 03/27/16 09:20 (Ferrous Sulfate) 325 mg BID PO 03/24/16 21:00 03/27/16 09:21 (Robaxin) 500 mg Q8HR PRN PO 03/25/16 11:15 03/27/16 17:46 (Levemir Inj) 60 units HS SQ 03/26/16 21:00 03/26/16 20:31 (Levemir Inj) 70 units DAILY SQ 03/26/16 09:00 03/27/16 09:00 (Deltasone) 20 mg BID PO 03/26/16 21:00 03/27/16 09:20 (NovoLOG INJ) 5 units TIDAC SQ 03/26/16 19:05 03/27/16 16:33 Allergies Allergies Coded Allergies No Known Allergies (Unverified03/16/16) Exam I&O / VS 03/26/16 03/26/16 03/27/16 15:00 23:00 07:00 Intake Total 1200 ml 2160 ml 600 ml Balance 1200 ml 2160 ml 600 ml Intake Oral 1200 ml 2160 ml 600 ml # Voids 2 5 3 # Bowel Movements 1 Vital Signs Date Time Temp Pulse Resp B/P Pulse Ox O2 Delivery O2 Flow Rate FiO2 03/27/16 16:00 97.8 84 16 118/59 97 03/27/16 12:00 98.4 82 18 120/67 99 03/27/16 08:00 97.5 78 16 100/61 98 03/27/16 04:00 98.6 70 16 110/58 97 03/27/16 00:00 97.8 76 16 107/58 95 03/26/16 21:30 68 102/56 03/26/16 20:30 97.8 72 16 92/54 95 Exam Comments alert and oriented , speech normal CN 2-12 normal 5/5 Bilateral deltoid, biceps, triceps, interossei 3/5 bilateral iliopsoas, quadriceps, hamstring, tibialis anterior, 3+ bilateral patellar and ankle dtr with bilateral Babinski Frankie Torres PhD Mar 27, 2016 18:37
[2016-03-27] MEDS ORDERED: BACLOFEN 10 MG TAB PO SCH (21:00)
--- NOTE | 2016-03-28 09:05 | RSPPFT ---
DATE OF PROCEDURE: 03/22/16 COMMENTS: Spirometry with FVC of 2.2, FEV1 of 1.8, FEV1/FVC ratio at 84%. Post-bronchodilator study reveals a non-significant response. IMPRESSION: 1. Decreased flow rates. 2. No gross obstruction. 3. Possible airways restriction. 4. If clinically warranted, lung volumes may be helpful.
[2016-04-15] MEDS ORDERED: GETGO ROLLING W1 MI1 (14:08)
[2016-04-17] MEDS ORDERED: NEUR300C PO (11:50)
[2016-04-17] MEDS ORDERED: PANT40TA3 PO (11:50)
[2016-04-17] MEDS ORDERED: ATEN50TA PO (11:50)
[2016-04-17] MEDS ORDERED: OXYC-392 PO (11:50)
[2016-04-17] MEDS ORDERED: LEVEMIR SQ ×2 (11:50)
[2016-04-17] MEDS ORDERED: ZOLO100T PO (11:50)
[2016-04-17] MEDS ORDERED: LIPI20TA PO (11:50)
[2016-04-17] MEDS ORDERED: AMLO10 PO (11:50)
[2016-04-17] MEDS ORDERED: FERR325T PO (11:50)
[2016-04-17] MEDS ORDERED: BACL10TA PO (11:50)
[2016-04-17] MEDS ORDERED: AMBI10TA PO (11:50)
[2016-04-17] MEDS ORDERED: TRIA.1%T TOP (11:50)
[2016-04-17] MEDS ORDERED: NOVOLOGP2 SQ (11:50)
[2016-04-17] MEDS ORDERED: PRED10 PO (11:50)
[2016-04-17] MEDS ORDERED: LIDO5DIS35 TD (11:50)
[2016-04-18] MEDS ORDERED: OXYC-395 PO (08:19)
[2016-04-18] MEDS ORDERED: INSU1INJ5 SQ ×2 (09:14)
== END 2016-03-27 19:26 | DRG 98 ==
LOC: NEPE 21:59 → NEDA 23:21 → NEPHCDU 03-17 00:29 → OBSVTOIN 03-18 21:23 → HOCB 03-21 14:41
PROVIDERS: ADMIT Family Medicine; ATTEND Family Medicine
PROC: 009U3ZX Drainage of Spinal Canal, Percutaneous Approach, Diagnostic (ICD-10-PCS; principal; 2016-03-21)
DX: G37.3 Acute transverse myelitis in demyelinating disease of central nervous system (principal); N30.00 Acute cystitis without hematuria; M47.12 Other spondylosis with myelopathy, cervical region; E11.65 Type 2 diabetes mellitus with hyperglycemia; D86.9 Sarcoidosis, unspecified; M51.04 Intervertebral disc disorders with myelopathy, thoracic region; I10 Essential (primary) hypertension; E66.01 Morbid (severe) obesity due to excess calories; R39.15 Urgency of urination; R20.0 Anesthesia of skin; R07.89 Other chest pain; R10.2 Pelvic and perineal pain; E78.5 Hyperlipidemia, unspecified; M54.9 Dorsalgia, unspecified; G89.29 Other chronic pain; Z79.4 Long term (current) use of insulin; Z98.1 Arthrodesis status; K59.00 Constipation, unspecified; Z99.3 Dependence on wheelchair; N83.201 Unspecified ovarian cyst, right side; B96.20 Unspecified Escherichia coli [E. coli] as the cause of diseases classified elsewhere; R29.6 Repeated falls; M19.90 Unspecified osteoarthritis, unspecified site; R20.2 Paresthesia of skin; R53.1 Weakness; R26.2 Difficulty in walking, not elsewhere classified; F43.24 Adjustment disorder with disturbance of conduct; F32.9 Major depressive disorder, single episode, unspecified
CPT/HCPCS: 62270; 70470; 71010; 71250; 72125; 72128; 72131; 73030; 74177; 76937; 77003; 80048; 80053; 81001; 82040; 82042; 82164; 82550; 82552; 82607; 82784; 82945; 82947; 82948; 83036; 83690; 83873; 83916; 84157; 84443; 84481; 84484; 84703; 85025; 85027; 85610; 85652; 85730; 86038; 86039; 86403; 86592; 86687; 86703; 87015; 87070; 87077; 87086; 87102; 87116; 87186; 87205; 87206; 87801; 89051; 93005; 94060; G0378; J0696; J1100; J1644; J1815; J2270; J2920; J2930; J7030; J7512; P9612; Q9967

== ENCOUNTER → 2016-08-28 | Outpatient (CLI) | payer OTHER ==
[~2016-08-28] MED LIST: ACET325T PO; AMBI10TA PO; AMLO10 PO; ATEN50TA PO; ATOR20TA15 PO; BACL10TA PO; BISA10R PR; CITRSOL4 PO; DULC10SU3 RECTAL; ESOM1CAP16 PO; FERR325T PO; GETGO ROLLING W1 MI1; INSU1INJ5 SQ; LEVEMIR SQ; LIDO5DIS35 TD; LIPI20TA PO; LISI40TA PO; METH500T3 PO; MILKSUS PO; NEUR300C PO; NOVOLOGP2 SQ; NOVORP2 SQ; OXYC-395 PO; PANT40TA3 PO; POLY17S PO; PRED10 PO; PRED20 PO; SENN8.6T15 PO; TRIA.1%T TOP; VITA100018 PO; ZOLO100T PO
--- NOTE | 2016-08-28 11:51 | RADRPT ---
EXAM DATE/TIME: 08/28/2016 11:20 [place] COMPARISON: No previous studies available for comparison. INDICATIONS : Chest tightness for a few years. MEDICAL HISTORY : Cardiovascular disease. Hypertension. Diabetes mellitus type 1. SURGICAL HISTORY : Cholecystectomy. ENCOUNTER: Initial ACUITY: >1 year PAIN SCORE: 4/10 LOCATION: Bilateral chest FINDINGS: PA and lateral views of the chest demonstrate the lungs to be symmetrically aerated without evidence of mass, infiltrate or effusion. The cardiomediastinal contours are unremarkable. Osseous structure s are intact. CONCLUSION: No acute disease. Nayan Goetz MD on August 28, 2016 at 11:47 Board Certified Radiologist. This report was verified electronically.
--- NOTE | 2016-08-29 10:41 | RSPPFT ---
DATE OF PROCEDURE: 08/28/16 COMMENTS: Spirometry with FVC of 2.5 at 74% of predicted, FEV1 of 1.8 at 67%, FEV1/FVC ratio is normal. Flow is decreased at FEF 25, FEF 50, FEF 75 and FEF 25-75. There is no response after bronchodilator treatment. Lung volumes show residual volume is normal. TLC is normal. Diffusion capacity is mildly decreased. Flow volume loop indicates terminal airways obstruction. IMPRESSION: 1. Mild small airways obstructive lung disease. 2. No response after bronchodilator treatment. 3. Normal lung volumes. 4. Mild decrease in diffusion capacity.
== END ==
LOC: HRSP 09:18
PROVIDERS: ATTEND Specialist
DX: D86.9 Sarcoidosis, unspecified (principal)
CPT/HCPCS: 71020; 94060; 94726; 94729